=== PATIENT | female | born 1955 | race Caucasian/White ===

== ENCOUNTER → 2017-03-22 | Outpatient (CLI) | payer BC ==
[2017-03-22 11:54] LABS: Basophils # (A) 0.1 k/uL (0-0.2); Basophils % (A) 1 %; Eosinophils # (A) 0.2 k/uL (0-0.7); Eosinophils % (A) 3 %; HCT 43.6 % (34.0-46.0); HGB 14.5 gm/dL (11.4-16.0); Lymphocytes # (A) 1.4 k/uL (1.0-4.8); Lymphocytes % (A) 27 %; MCH 28.8 pg (25.0-35.0); MCHC 33.2 g/dL (31.0-37.0); MCV 86.9 fL (80.0-100.0); Mean Platelet Volume 6.6; Monocytes # (A) 0.3 k/uL (0-1.0); Monocytes % (A) 5 %; Neutrophils # (A) 3.2 k/uL (1.3-7.7); Neutrophils % (A) 61 %; Platelet Count 272 k/uL (150-450); RBC 5.02 m/uL (3.80-5.40); RDW 12.1 % (11.5-15.5); WBC 5.2 k/uL (3.8-10.6)
== END | disposition home or self-care (01) ==
LOC: LABPAT 11:04
PROVIDERS: ATTEND Obstetrics & Gynecology
DX: Z01.818 Encounter for other preprocedural examination (principal); I10 Essential (primary) hypertension; N95.0 Postmenopausal bleeding; Z01.812 Encounter for preprocedural laboratory examination
CPT/HCPCS: 36415; 85025; 93005

== ENCOUNTER → 2017-03-22 | Outpatient (CLI) | payer BC ==
[2017-03-22 12:12] LABS: ALT 40 U/L (9-52); AST 20 U/L (14-36); Albumin 3.9 g/dL (3.5-5.0); Alkaline Phosphatase 123 U/L (38-126); Anion Gap 12 mmol/L; Blood Urea Nitrogen 12 mg/dL (7-17); Calcium 9.4 mg/dL (8.4-10.2); Carbon Dioxide 25 mmol/L (22-30); Chloride 103 mmol/L (98-107); Glucose 103 mg/dL (74-99); Phosphorus 3.1 mg/dL (2.5-4.5); Potassium 4.5 mmol/L (3.5-5.1); Sodium 140 mmol/L (137-145); Total Protein 6.9 g/dL (6.3-8.2); Uric Acid 6.3 mg/dL (3.7-7.4)
[2017-03-22 15:25] LABS: Vitamin D 25 Hydroxy 9.9 ng/mL (30.0-100.0)
[2017-03-22 17:58] LABS: Parathyroid Hormone Intact 228.6 pg/mL (14.0-72.0)
== END | disposition home or self-care (01) ==
LOC: LABWHC1 11:07
PROVIDERS: ATTEND Family Medicine
DX: I12.9 Hypertensive chronic kidney disease with stage 1 through stage 4 chronic kidney disease, or unspecified chronic kidney disease (principal); N18.3 Chronic kidney disease, stage 3 (moderate)
CPT/HCPCS: 36415; 80053; 82043; 82306; 82570; 83735; 83970; 84100; 84550

== ENCOUNTER 2017-04-02 07:16 | Day surgery (SDC) | payer BC ==
[2017-03-22 15:18] VITALS: BMI 53.0
[~2017-04-02 07:16] MED LIST: DEXAMETHASONE SOD PHOSPHATE 10 MG/ML 1 ML VIAL IV ONE; LACTATED RINGERS 1,000 ML IV SCH; MIDAZOLAM 2 MG/2 ML VIAL IV PRN; MORPHINE SULFATE 4 MG/ML SYRINGE IV PRN; ONDANSETRON 4 MG/2 ML VIAL IVP ONE; Pre Op ABX Message 1 EACH MISC MISCELLANE ONE; SCOPOLAMINE 1.5MG/72HR PATCH TRANSDERM ONE
[2017-04-02 08:01] VITALS: RESP 16
[2017-04-02] MEDS ORDERED: LIDOCAINE 1% 20 ML VIAL (10MG/ML) FOR IV START INTRADERMA ONE (08:05)
[2017-04-02] MEDS ORDERED: KETOROLAC 30 MG/ML 1 ML VIAL ONE (08:54)
[2017-04-02] MEDS ORDERED: SUCCINYLCHOLINE CHLORIDE 100 MG/5 ML SYR IV ONE (08:54)
[2017-04-02] MEDS ORDERED: PROPOFOL 10 MG/ML 20 ML VIAL IV ONE (08:54)
[2017-04-02] MEDS ORDERED: fentaNYL (PF) 50 MCG/ML 2 ML AMP ONE (08:54)
[2017-04-02] MEDS ORDERED: MIDAZOLAM 2 MG/2 ML VIAL ONE (08:54)
[2017-04-02] MEDS ORDERED: LIDOCAINE 1% INJ 10MG/ML (20 ML MDV) ONE (08:54)
--- NOTE | 2017-04-02 09:28 | P.OP ---
Date of Procedure: 04/02/17 Preoperative Diagnosis: Postmenopausal bleeding, morbid obesity. Postoperative Diagnosis: Same, endometrial polyps Procedure(s) Performed: Hysteroscopy, D&C, polypectomy Anesthesia: DOMOA Surgeon: Ene Blackmon Estimated Blood Loss (ml): 10 IV fluids (ml): 600 Urine output (ml): 50 Pathology: other (Endometrial curettings and polyps) Condition: stable Disposition: PACU Description of Procedure: Patient is brought to the operating suite where a general anesthetic is administered. She's placed in the dorsal lithotomy position. The appropriate timeout was performed to assure proper patient and procedural identification. Examination under anesthesia reveals a long stenotic cervix, small anteverted uterus, adnexa difficult to assess secondary to body habitus. Bladder is drained for 10 mL of urine. Speculum was placed into the vagina and the anterior lip of the cervix is grasped with a double-tooth tenaculum. Uterus sounds to 8 cm in the anteverted position. Cervix was gently and systematically dilated using Hanks dilators. Hysteroscope was introduced and the cavity is distended with sterile saline. There is a large predominant polyp noted at the very top of the fundus. The rest of the cavity appears atrophic. Hysteroscope was removed. The uterus is now curettaged with a medium sharp curette. The large polyp is procured and sent to pathology for evaluation along with other scant endometrial tissue. Hysteroscope was once again introduced and the cavity is noted to be clear, clean and dry. All sponge needle and enhancement counts are correct. Cervix is dry upon removing the tenaculum. Patient is brought back to the recovery room in very good condition with stable vital signs including pulse 63, blood pressure 120/58. Complications: None. She will follow-up in the office with me in 2 weeks.
[2017-04-02 09:38] VITALS: TEMP 96.8
[2017-04-02] MEDS ORDERED: LACTATED RINGERS 1,000 ML IV ONE (11:10)
[2017-04-02 11:47] VITALS: BP 164/55; PULSE 6
== END 2017-04-02 12:23 | disposition home or self-care (01) ==
LOC: OR 07:16
PROVIDERS: ATTEND Obstetrics & Gynecology
DX: N84.0 Polyp of corpus uteri (principal); N87.9 Dysplasia of cervix uteri, unspecified; N95.0 Postmenopausal bleeding; I10 Essential (primary) hypertension; E78.5 Hyperlipidemia, unspecified; E03.9 Hypothyroidism, unspecified; F32.9 Major depressive disorder, single episode, unspecified; E66.01 Morbid (severe) obesity due to excess calories; Z68.43 Body mass index [BMI] 50.0-59.9, adult; Z88.2 Allergy status to sulfonamides; Z79.82 Long term (current) use of aspirin; Z79.890 Hormone replacement therapy; Z79.899 Other long term (current) drug therapy; Z98.51 Tubal ligation status
CPT/HCPCS: 58558; 88305; J2250; J1100; J2405; J2001; J3010; J1885; J0330; J2704

== ENCOUNTER → 2017-05-03 | Outpatient (CLI) | payer BC ==
--- NOTE | 2017-05-04 12:04 | MM ---
Reason for exam: screening (asymptomatic). Last mammogram was performed 3 years and 11 months ago. History: Patient is postmenopausal. Physical Findings: A clinical breast exam by your physician is recommended on an annual basis and results should be correlated with mammographic findings. MG Screening Mammo w CAD Bilateral CC and MLO view(s) were taken. Prior study comparison: May 23, 2013, bilateral digital screening mammo w/CAD. March 01, 2012, bilateral digital screening mammo w/CAD. There are scattered fibroglandular densities. No suspicious abnormality. No significant changes when compared with prior studies. ASSESSMENT: Negative, BI-RAD 1 RECOMMENDATION: Routine screening mammogram of both breasts in 1 year.
== END | disposition home or self-care (01) ==
LOC: RADMAMWWP 11:52
PROVIDERS: ATTEND Obstetrics & Gynecology
DX: Z12.31 Encounter for screening mammogram for malignant neoplasm of breast (principal)
CPT/HCPCS: 77067

== ENCOUNTER → 2017-10-15 | Outpatient (CLI) | payer BC ==
[2017-10-15 11:10] LABS: Basophils % (A) 1 %; Eosinophils # (A) 0.1 k/uL (0-0.7); Eosinophils % (A) 2 %; HCT 45.5 % (34.0-46.0); HGB 14.6 gm/dL (11.4-16.0); Lymphocytes # (A) 1.4 k/uL (1.0-4.8); Lymphocytes % (A) 24 %; MCH 27.7 pg (25.0-35.0); MCHC 32.1 g/dL (31.0-37.0); MCV 86.4 fL (80.0-100.0); Mean Platelet Volume 6.8; Monocytes # (A) 0.3 k/uL (0-1.0); Monocytes % (A) 4 %; Neutrophils % (A) 68 %; Platelet Count 229 k/uL (150-450); RBC 5.27 m/uL (3.80-5.40); WBC 5.9 k/uL (3.8-10.6)
[2017-10-15 11:58] LABS: Magnesium 2.1 mg/dL (1.6-2.3); Uric Acid 5.7 mg/dL (3.7-7.4)
[2017-10-15 12:14] LABS: T4, Free (Free Thyroxine) 1.4 ng/dL (0.78-2.19)
[2017-10-15 16:34] LABS: Vitamin D 25 Hydroxy 58.9 ng/mL (30.0-100.0)
[2017-10-15 17:00] LABS: Parathyroid Hormone Intact 133.1 pg/mL (14.0-72.0)
== END | disposition home or self-care (01) ==
LOC: LABWHC1 10:09
PROVIDERS: ATTEND Family Medicine
DX: Z01.812 Encounter for preprocedural laboratory examination (principal); E55.9 Vitamin D deficiency, unspecified; E03.9 Hypothyroidism, unspecified; N25.81 Secondary hyperparathyroidism of renal origin; E78.5 Hyperlipidemia, unspecified; N18.3 Chronic kidney disease, stage 3 (moderate)
CPT/HCPCS: 36415; 80061; 82043; 82306; 82570; 83735; 83970; 84439; 84443; 84550; 85025

== ENCOUNTER → 2017-10-15 | Outpatient (CLI) | payer BC ==
[2017-10-15 11:17] LABS: Appearance,Urine Clear (Clear); Bilirubin,Urine Negative (Negative); Blood,Urine Negative (Negative); Color,Urine Yellow; Glucose,Urine (UA) Negative (Negative); Ketones,Urine Negative (Negative); Leukocyte Esterase,Urine Small (Negative); Mucus,Urine Occasional /hpf; Nitrite,Urine Negative (Negative); PH, Urine 5.5 (5.0-8.0); Partial Thromboplastin Time 23.1 sec (22.0-30.0); Protein,Urine Trace (Negative); Prothrombin Time 10.2 sec (9.0-12.0); RBC,Urine 1 /hpf (0-5); Specific Gravity,Urine 1.021 (1.001-1.035); Squamous Epithelial Cell,Urine 3 /hpf (0-4); Urobilinogen,Urine <2.0 mg/dL (<2.0); WBC,Urine 4 /hpf (0-5)
[2017-10-15 11:28] LABS: Calcium 9.4 mg/dL (8.4-10.2); Total Protein 6.7 g/dL (6.3-8.2)
== END | disposition home or self-care (01) ==
LOC: LABPAT 10:06
PROVIDERS: ATTEND Orthopaedic Surgery
DX: Z01.812 Encounter for preprocedural laboratory examination (principal); Z51.81 Encounter for therapeutic drug level monitoring; Z79.01 Long term (current) use of anticoagulants
CPT/HCPCS: 36415; 80053; 81001; 85610; 85730; 87070

== ENCOUNTER 2017-10-30 07:30 | Inpatient (IN) | payer BC ==
[2017-10-22 12:54] VITALS: BMI 53.0
[~2017-10-30 07:30] MED LIST changes: +ACETAMINOPHEN TAB 500 MG TAB PO ONE; -LACTATED RINGERS 1,000 ML IV SCH; +LIDOCAINE 1% 20 ML VIAL (10MG/ML) FOR IV START INTRADERMA PRN; +MELOXICAM 7.5 MG TAB PO ONE; -MORPHINE SULFATE 4 MG/ML SYRINGE IV PRN; -ONDANSETRON 4 MG/2 ML VIAL IVP ONE; -Pre Op ABX Message 1 EACH MISC MISCELLANE ONE; -SCOPOLAMINE 1.5MG/72HR PATCH TRANSDERM ONE; +TRANEXAMIC ACID 1,000 MG in SODIUM CHLORIDE 0.9% 50 ML IVPB ONE; +fentaNYL (PF) 50 MCG/ML 2 ML AMP IV PRN
[2017-10-30] MEDS: ONDANSETRON 4 MG/2 ML VIAL IVP ONE ×2 (09:26→09:50)
[2017-10-30] MEDS: LACTATED RINGERS 1,000 ML IV SCH ×2 (09:50→17:09)
[2017-10-30] MEDS: ROPIVACAINE 246.25 MG, EPINEPHrine 0.5 MG, KETOROLAC 30 MG, cloNIDine HCL/PF 80 MCG, WA... MISCELLANE ONE ×15 (12:27→15:09)
[2017-10-30] MEDS ORDERED: fentaNYL (PF) 50 MCG/ML 2 ML AMP ONE (13:51)
[2017-10-30] MEDS ORDERED: SODIUM CHLORIDE 0.9% 100 ML BAG ONE (13:51)
[2017-10-30] MEDS ORDERED: PROPOFOL 10 MG/ML 20 ML VIAL IV ONE (13:51)
[2017-10-30] MEDS ORDERED: TRANEXAMIC ACID 1,000 MG/10 ML VIAL ONE (13:51)
[2017-10-30] MEDS ORDERED: MIDAZOLAM 2 MG/2 ML VIAL ONE (13:51)
--- NOTE | 2017-10-30 15:19 | P.OP ---
Date of Procedure: 10/30/17 Preoperative Diagnosis: Severe Osteoarthritis right knee Postoperative Diagnosis: Severe osteoarthritis right knee Procedure(s) Performed: Right total knee arthroplasty Implants: [employer]hew Oxinium femoral component size 5, right [employer]hew Gaviota II right nonporous tibial baseplate size 3 [employer] Nephew size 9 mm Legion XLPE dished articular insert, size 3-4 [employer] Gaviota II resurfacing patellar component, 29 mm All components were cemented using Susan bone cement.. The articulation is Oxinium on polyethylene. Anesthesia: spinal Surgeon: Samson Castellon Cylinder Valve Repairer #1: Jaycee Melton Estimated Blood Loss (ml): 50 Pathology: other (Bone and cartilage) Condition: stable Disposition: PACU Indications for Procedure: After failure of conservative treatment we discussed the surgical and nonsurgical treatment options at length. Patient wishes to proceed with a total knee arthroplasty. Complications specific to this procedure were discussed at length, including but not limited to infection, bleeding, stiffness , and nerve injury. Patient is aware of all these complications and informed consent was obtained Operative Findings: The operative findings are consistent with severe osteoarthritis of the right knee Description of Procedure: Patient was seen in the preoperative area consent was reviewed and operative site was marked with a skin marker. An adductor canal pain catheter was placed by anesthesia in the preoperative area. Patient was then brought to the operating room and given preoperative antibiotics intravenously. A spinal anesthetic was administered by the anesthesia department. A tourniquet was placed on the upper thigh and the lower extremity was prepped and draped in usual sterile fashion. A gram of transexamic acid was given. A universal timeout was then performed which confirmed the patient's name, surgical site, ALLERGIES, and consent. The lower extremity was then exsanguinated and tourniquet was inflated to 250 mmHg. A standard and anterior midline approach to the knee was performed. The skin and subcutaneous tissue was dissected down to the patellar tendon. A medial parapatellar arthrotomy was then performed. The knee was then extended, the patellar was everted, and the knee was again flexed. Anterior horns of both menisci were excised, and a release was performed to the posterior medial aspect of the knee. On gross visual inspection, there was complete loss of articular cartilage in the medial and patellofemoral joint spaces. There was also significant cartilage damage in the lateral compartment. There were multiple periarticular osteophytes which were then removed with a Ronguer. The femoral canal was then opened with the appropriate drill, and the intramedullary femoral cutting guide was then placed and set for 4 of valgus. The distal femoral cutting block was then pinned in place, and the distal femur was then cut. The cutting block was then removed and the cut was checked for flatness. Next, the sizing guide was then placed and set for 3 external rotation based off of the epicondylar axis and Whitesides line. After the femur was sized, the appropriate 4-in-1 cutting block was then pinned in place. The anterior condyles were cut without notching. The posterior and chamfer cuts were performed while protecting the collateral ligaments. The cutting block was then removed, and the femoral canal was plugged with autologous bone. Attention was then directed to the tibia. The remaining ACL was removed with a Ronguer, and the tibia was then gently subluxed forward with a large bent knee retractor. Any remaining menisci was excised. The posterior lateral corner was cauterized in order to cauterize the lateral geniculate artery. The extra medullary tibial cutting guide was then placed, set for the appropriate rotation , slope, and depth of resection. The proximal tibia cutting guide was then pinned in place. Proximal tibia was then cut and sized. Next trials were then placed with the appropriate-sized insert. The knee was able to fully extend and flex to 130 and was stable throughout all range of motion. The knee was then extended, patella everted. Patella was then measured, and then using an osteotomy guide, the patella was cut at the appropriate level. The patella was then measured and drilled and the patella trial was then placed. The knee was then taken through range of motion with the patella trial and the patella tracked normally. The knee was then extended patella trial was then removed and the patella was everted. Knee was then flexed and lug holes were drilled through the femoral trial and the femoral trial was then removed. The tibial was then exposed, and the tibial broach guide was then pinned in place after it was set for the appropriate rotation to allow for the most coverage without overhang. The tibia was then reamed and broached. The cut surfaces of bone were then irrigated with pulsatile lavage. The posterior structures were injected with the ropivacaine solution. The knee was also irrigated with Irrisept solution. The components were then opened, the cement was mixed, and the components were then cemented in place. The cement was allowed to harden with the knee in full extension. While the cement was hardening, the remaining soft tissues were then injected with a ropivacaine solution, which consisted of 246.25 mg of ropivacaine, 0.5 mg of epinephrine, 30 mg of Toradol, 80 g of clonidine, and 48.45 mL of sterile water, for a total of 100 mL of fluid injected. After the cemented hardened. The tourniquet was released, and hemostasis was obtained. A second gram of transexamic acid was given. The knee was again irrigated. The knee was again taken through range of motion and found to be stable throughout all range of motion of 0-130 , and the patella tracked normally. The fascia was then closed with #2 strata fix suture. The subcutaneous tissue was closed with 3-0 Vicryl and 3-0 strata fix. Dermabond glue was used for the skin and placed with the knee in flexion. The patient was placed in a sterile silver dressing. Patient was then transferred to recovery room in stable condition. The library assistant ZEN Orozco was required due the complexity surgery and the need for a skilled surgical nurse practitioner. She assisted in positioning, draping, retraction, and closure of the wound.
[2017-10-30] MEDS ORDERED: LACTATED RINGERS 1,000 ML IV ONE (15:23)
[2017-10-30] MEDS ORDERED: HYDROcodone/APAP 5-325MG 1 EACH TAB PO PRN (15:54)
[2017-10-30] MEDS ORDERED: BISACODYL 10 MG SUPP RECTAL PRN (15:54)
[2017-10-30] MEDS ORDERED: HYDROmorphone 1 MG/ML 1 ML SYRINGE IVP PRN ×3 (15:54)
[2017-10-30] MEDS ORDERED: NA PHOS,M-B/NA PHOS,DI-BA 133 ML ENEMA RECTAL PRN (15:54)
[2017-10-30] MEDS ORDERED: DIAZEPAM 5 MG TAB PO PRN ×2 (15:54)
[2017-10-30] MEDS ORDERED: NALOXONE 0.4 MG/ML 1 ML VIAL IV PRN (15:54)
[2017-10-30] MEDS ORDERED: MAGNESIUM HYDROXIDE 2,400 MG/10 ML CUP PO PRN (15:54)
[2017-10-30] MEDS ORDERED: ONDANSETRON 4 MG/2 ML VIAL IVP PRN (15:54)
--- NOTE | 2017-10-30 16:16 | XR ---
EXAMINATION TYPE: XR knee limited RT DATE OF EXAM: 10/30/2017 CLINICAL HISTORY: Right knee pain and arthritis status post total knee replacement. TECHNIQUE: Portable AP and crosstable lateral views of the right knee are obtained immediately posto peratively. COMPARISON: None FINDINGS: Metallic hardware from total right knee arthroplasty is seen and appears satisfactory in a lignment and position. There is evidence of recent surgery with diffuse subcutaneous gas and soft sw elling noted. IMPRESSION: METALLIC HARDWARE FROM TOTAL RIGHT KNEE ARTHROPLASTY IS SATISFACTORY IN ALIGNMENT.
[2017-10-30] MEDS: SODIUM CHLORIDE 0.9% 1,000 ML IV SCH (17:10)
[2017-10-30] MEDS: ASPIRIN 325 MG TAB PO SCH (20:42)
[2017-10-30] MEDS: SENNOSIDES-DOCUSATE SODIUM 1 EACH TAB PO SCH (20:42)
[2017-10-30] MEDS: ATORVASTATIN 40 MG TAB PO SCH (21:54)
[2017-10-30] MEDS: buPROPion SR 100 MG TABLET.ER PO SCH (21:54)
[2017-10-30] MEDS: METOPROLOL TARTRATE 25 MG TAB PO SCH (21:54)
[2017-10-30] MEDS: LOSARTAN 50 MG TAB PO SCH (21:54)
--- NOTE | 2017-10-30 23:24 | P.CONS ---
History of Present Illness - Reason for Consult Consult date: 10/30/17 Medical management Requesting physician: Samson Castellon - Chief Complaint Elective right total knee arthroplasty - History of Present Illness 62-year-old female with history of hypertension and hypothyroidism. Patient presented for elective right total knee arthroplasty due to long- standing severe advanced degenerative joint disease of the right knee failing conservative therapy. Patient reports disabling pain has been interfering with her activities of daily living to have this surgically corrected. Patient is seen today upon her primary care request for medical management of her hypertension and hypothyroidism. Patient has tolerated procedure well with no observed immediate complications. Currently she is seen postoperative day 0 she did not pass urine or bowel movement yet but she reports that her pain is well controlled and that she has already ate. She denies any chest pain or trouble breathing denies any fevers chills denies any headache changes in her vision or hearing she denies any focal neurologic deficits. She denies any history of GI bleeding Review of Systems Pertinent positives as noted in HPI. All other systems were reviewed and are negative Past Medical History Past Medical History: Hypertension, Osteoarthritis (OA), Thyroid Disorder Additional Past Medical History / Comment(s): hx rapid heart rate, heart murmur History of Any Multi-Drug Resistant Organisms: None Reported Past Surgical History: Section, Orthopedic Surgery, Tubal Ligation Additional Past Surgical History / Comment(s): carpel tunnel, arthroscopy left knee, D & C's Past Anesthesia/Blood Transfusion Reactions: No Reported Reaction Past Psychological History: Depression Smoking Status: Never smoker Past Alcohol Use History: None Reported Past Drug Use History: None Reported - Past Family History Mother Family Medical History: No Reported History Additional Family Medical History / Comment(s): Denies any history of cancer or heart disease Medications and Allergies Home Medications Medication Instructions Recorded Confirmed Type Levothyroxine Sodium [Synthroid] 50 mcg PO DAILY 02/18/16 10/30/17 History Metoprolol Tartrate [Lopressor] 25 mg PO BID 02/18/16 10/30/17 History buPROPion SR [Wellbutrin Sr] 200 mg PO BID 02/18/16 10/30/17 History Aspirin [Adult Low Dose Aspirin EC] 81 mg PO DAILY 03/22/17 10/30/17 History Atorvastatin [Lipitor] 40 mg PO HS 03/22/17 10/30/17 History Ergocalciferol (Vitamin D2) 50,000 unit PO ALLISON 10/22/17 10/30/17 History [Vitamin D2] Losartan Potassium 100 mg PO HS 10/30/17 10/30/17 History Allergies Allergy/AdvReac Type Severity Reaction Status Date / Time Sulfa (Sulfonamide Allergy Rash/Hives Verified 10/30/17 16:49 Antibiotics) Physical Exam Vitals: Vital Signs Temp Pulse Pulse Resp BP Pulse Ox 10/30/17 16:32 57 L 16 117/62 95 10/30/17 16:19 55 L 16 117/59 99 10/30/17 16:04 57 L 16 117/56 96 10/30/17 15:49 97.8 F 66 14 112/58 96 10/30/17 09:36 97.6 F 71 16 167/75 95 Intake and Output 10/30/17 10/30/17 10/30/17 06:59 14:59 22:59 Intake Total 1050 100 Output Total 50 Balance 1050 50 Intake: IV 1050 100 Output: Estimated Blood Loss 50 Other: Weight 131.542 kg Constitutional: No acute distress, conversant, pleasant Eyes: Anicteric sclerae, moist conjunctiva, no lid-lag Pupils equal round reactive to light ENMT: NC/AT Oropharynx clear, no erythema, exudates Neck: Supple, FROM, no masses, or JVD No carotid bruits No thyromegaly Lungs: Clear to auscultation Clear to percussion Normal respiratory effort, no accessory muscle use Cardiovascular: Heart regular in rate and rhythm, No murmurs, gallops, or rubs No peripheral edema Abdominal: Soft Nontender, no guarding, rebound or rigidity Abdomen moving with respiration Normoactive bowel sounds No hepatomegaly, No splenomegaly No palpable mass No abdominal wall hernia noted Skin: Normal temperature, tone, texture, turgor No induration No subcutaneous nodules No rash, lesions No ulcers Extremities: Right lower leg and with surgical dressing over the right knee looks clean dry and intact no drains. shola wrapping in place. No digital cyanosis No clubbing Pedal pulses intact and symmetrical Radial pulses intact and symmetrical No calf tenderness Psychiatric: Alert and oriented to person, place and time Appropriate affect fair judgment Neuro Muscles Strength 5/5 in all 4 extremities except for limited exam of right lower extremity due to recent surgery Sensation to light touch grossly present throughout Cranial nerves II-XII grossly intact No focal sensory deficits Lymphatics: no palpable cervical or supraclavicular , or inguinal lymph nodes Assessment and Plan Assessment: 60-year-old female with history of hypertension and hypothyroidism presented positive for elective right total knee arthroplasty due to severe advanced degenerative joint disease. Medicine was consulted for medical management, patient was seen postoperative day 0 tolerated procedure well. Plan: Severe degenerative joint disease of the right knee status post right total knee arthroplasty postoperative day 0 Pain management and DVT prophylaxis per orthopedic team Hypertension currently stable Continued home medications Losartan and metoprolol Hypothyroidism continue with levothyroxine Check morning labs CBC and BMP Thank you for allowing us to participate in the care of this patient. . Do not hesitate to contact us with questions. Someone can be reached from the [facility] hospitalist group at all hours of the day at [phone].
[2017-10-31] MEDS: HYDROcodone/APAP 5-325MG 1 EACH TAB PO PRN ×4 (00:44→20:48)
[2017-10-31] MEDS: LEVOTHYROXINE 50 MCG TAB PO SCH (05:10)
[2017-10-31 07:14] LABS: Basophils % (A) 0 %; Eosinophils % (A) 0 %; HCT 37.8 % (34.0-46.0); HGB 12.2 gm/dL (11.4-16.0); Lymphocytes # (A) 1.2 k/uL (1.0-4.8); Lymphocytes % (A) 9 %; MCH 28.3 pg (25.0-35.0); MCHC 32.3 g/dL (31.0-37.0); MCV 87.8 fL (80.0-100.0); Mean Platelet Volume 6.6; Monocytes # (A) 0.6 k/uL (0-1.0); Monocytes % (A) 5 %; Neutrophils # (A) 11.2 k/uL (1.3-7.7); Neutrophils % (A) 85 %; Platelet Count 248 k/uL (150-450); WBC 13.1 k/uL (3.8-10.6)
[2017-10-31 07:46] LABS: Calcium 8.8 mg/dL (8.4-10.2); Potassium 4.5 mmol/L (3.5-5.1)
[2017-10-31] MEDS: SODIUM CHLORIDE 0.9% 1,000 ML IV SCH ×2 (07:56→22:25)
[2017-10-31] MEDS: MELOXICAM 7.5 MG TAB PO SCH (08:05)
[2017-10-31] MEDS: ASPIRIN 325 MG TAB PO SCH ×2 (08:05→20:49)
[2017-10-31] MEDS: METOPROLOL TARTRATE 25 MG TAB PO SCH ×2 (08:06→20:48)
[2017-10-31] MEDS: buPROPion SR 100 MG TABLET.ER PO SCH ×2 (08:06→20:48)
--- NOTE | 2017-10-31 08:53 | P.PN ---
Subjective Progress Note Date: 10/31/17 This is a 62-year-old female who is status post right total knee arthroplasty. This is postoperative day #1. Patient is seen and evaluated at bedside with Dr. Samson Castellon. Patient states that her pain is well controlled and she has been up and walking with physical therapy. Patient denies any fever/chills, numbness, weakness, tingling, abdominal pain, shortness of breath or chest pain. Objective - Vital Signs Vital signs: Vital Signs Temp 97.8 F 10/31/17 07:05 Pulse 64 10/31/17 07:05 Resp 18 10/31/17 07:05 BP 138/72 10/31/17 07:05 Pulse Ox 97 10/31/17 07:05 Intake & Output 10/30/17 10/31/17 10/31/17 18:59 06:59 18:59 Intake Total 1150 1245 Output Total 50 1 Balance 1100 1244 Weight 131.542 kg Intake: IV 1150 Intake, IV Titration 845 Amount Sodium Chloride 0.9% 1, 845 000 ml @ 65 mls/hr IV . [id number] [facility] Rx#:[id number] Other 400 Output: Urine 1 Estimated Blood Loss 50 Other: # Voids 3 - Exam Vital signs are stable. Patient is in no acute distress and is alert and oriented 3. Calf is soft and nontender to palpation. Dressing is clean, dry, and intact. Patient has full foot and ankle motion without pain or difficulty. Neurovascular status and circulatory status are intact. - Labs CBC & Chem 7: 10/31/17 06:36 10/31/17 06:36 Labs: Abnormal Lab Results - Last 24 Hours (Table) 10/31/17 10/31/17 Range/Units 06:36 06:36 WBC 13.1 H (3.8-10.6) k/uL Neutrophils # 11.2 H (1.3-7.7) k/uL Creatinine 1.22 H (0.52-1.04) mg/dL Glucose 100 H (74-99) mg/dL Assessment and Plan (1) Primary osteoarthritis of right knee Current Visit: Yes Status: Acute Code(s): M17.11 - UNILATERAL PRIMARY OSTEOARTHRITIS, RIGHT KNEE SNOMED Code(s): 336843396391401 (2) Status post total right knee replacement Current Visit: Yes Status: Acute Code(s): Z96.651 - PRESENCE OF RIGHT ARTIFICIAL KNEE JOINT SNOMED Code(s): 9432148082838 Plan: #1 Continue with routine postoperative care, leave dressing in place for 10 days. #2 Anticoagulation with aspirin. #3 Physical therapy and CPM today. #4 Appreciate input from medicine. #5 Anticipate discharge home with home care likely tomorrow or to rehab Sunday.
[2017-10-31] MEDS: LACTATED RINGERS 1,000 ML IV SCH (09:07)
--- NOTE | 2017-10-31 13:43 | P.PN ---
Subjective Progress Note Date: 10/31/17 Principal diagnosis: Knee pain Patient doing well, no significant pain. No nausea or vomiting. No chest pain or shortness of breath. Objective - Vital Signs Vital signs: Vital Signs Temp 97.8 F 10/31/17 07:05 Pulse 64 10/31/17 07:05 Resp 18 10/31/17 07:05 BP 138/72 10/31/17 07:05 Pulse Ox 97 10/31/17 07:05 Intake & Output 10/30/17 10/31/17 10/31/17 18:59 06:59 18:59 Intake Total 1150 1245 Output Total 50 1 Balance 1100 1244 Weight 131.542 kg Intake: IV 1150 Intake, IV Titration 845 Amount Sodium Chloride 0.9% 1, 845 000 ml @ 65 mls/hr IV . [id number] [facility] Rx#:[id number] Other 400 Output: Urine 1 Estimated Blood Loss 50 Other: # Voids 3 - Exam Constitutional: No acute distress, conversant, pleasant Eyes:Anicteric sclerae, moist conjunctiva, no lid-lag, PERRLA, ENMT: Oropharynx clear, no erythema, exudates Neck: Supple, FROM, no masses, or JVD, No carotid bruits, No thyromegaly Lungs: Clear to auscultation, Clear to percussion, Normal respiratory effort, no accessory muscle use Cardiovascular: Heart regular in rate and rhythm, No murmurs, gallops, or rubs, No peripheral edema Abdominal: Soft, Nontender, no guarding, rebound or rigidity, Normoactive bowel sounds, No hepatomegaly, No splenomegaly, No palpable mass Skin: Normal temperature, tone, texture, turgor, no induration, No subcutaneous nodules, No rash, lesions, No ulcers Extremities: Right knee surgical dressings applied No digital cyanosis, No clubbing, Pedal pulses intact and symmetrical, Radial pulses intact and symmetrical, No calf tenderness Psychiatric: Alert and oriented to person, place and time, appropriate affect, intact judgement Neuro: Muscles Strength 5/5 in all 4 extremities, Sensation to light touch grossly present throughout, Cranial nerves II-XII grossly intact, no focal sensory deficits - Labs CBC & Chem 7: 10/31/17 06:36 10/31/17 06:36 Labs: Abnormal Lab Results - Last 24 Hours (Table) 10/31/17 10/31/17 Range/Units 06:36 06:36 WBC 13.1 H (3.8-10.6) k/uL Neutrophils # 11.2 H (1.3-7.7) k/uL Creatinine 1.22 H (0.52-1.04) mg/dL Glucose 100 H (74-99) mg/dL Assessment and Plan Plan: -Severe degenerative joint disease of the right knee status post right total knee arthroplasty postoperative day 1 Pain management and DVT prophylaxis per orthopedic team -Hypertension currently stable Continued home medications Losartan and metoprolol -Hypothyroidism Continue with levothyroxine
[2017-10-31] MEDS ORDERED: HYDROmorphone 2 MG TAB PO PRN ×2 (15:35→15:36)
[2017-10-31] MEDS ORDERED: HYDROmorphone 4 MG TABLET PO PRN (15:36)
[2017-10-31] MEDS: SENNOSIDES-DOCUSATE SODIUM 1 EACH TAB PO SCH (20:48)
[2017-10-31] MEDS: hydrOXYzine PAMOATE 25 MG CAP PO PRN (20:49)
[2017-10-31] MEDS: ATORVASTATIN 40 MG TAB PO SCH (20:49)
[2017-10-31] MEDS: LOSARTAN 50 MG TAB PO SCH (20:49)
[2017-11-01] MEDS: HYDROcodone/APAP 5-325MG 1 EACH TAB PO PRN ×2 (01:59→07:58)
[2017-11-01] MEDS: hydrOXYzine PAMOATE 25 MG CAP PO PRN ×3 (02:00→21:31)
[2017-11-01] MEDS: LEVOTHYROXINE 50 MCG TAB PO SCH (05:23)
[2017-11-01] MEDS: ASPIRIN 325 MG TAB PO SCH ×2 (07:57→21:27)
[2017-11-01] MEDS: MELOXICAM 7.5 MG TAB PO SCH (07:57)
[2017-11-01] MEDS: METOPROLOL TARTRATE 25 MG TAB PO SCH ×2 (07:59→21:27)
[2017-11-01] MEDS ORDERED: HYDROcodone/APAP 7.5-325MG 1 EACH TAB PO PRN (08:46)
--- NOTE | 2017-11-01 08:46 | P.PN ---
Subjective Progress Note Date: 11/01/17 This is a 62-year-old female who is status post right total knee arthroplasty. This is postoperative day #2. Patient is seen and evaluated at bedside. Patient states she has been up and walking with physical therapy, but she did have more pain last night. Patient denies any fever/chills, numbness, weakness, tingling, abdominal pain, shortness of breath or chest pain. Objective - Vital Signs Vital signs: Vital Signs Temp 98.4 F 11/01/17 07:36 Pulse 64 11/01/17 07:36 Resp 18 11/01/17 07:36 BP 131/66 11/01/17 07:36 Pulse Ox 98 11/01/17 07:36 Intake & Output 10/31/17 11/01/17 11/01/17 18:59 06:59 18:59 Intake Total 540 1140 Balance 540 1140 Intake: Oral 540 540 Other 600 Other: # Voids 2 4 - Exam Vital signs are stable. Patient is in no acute distress and is alert and oriented 3. Calf is soft and nontender to palpation. Dressing is clean, dry, and intact. Patient has full foot and ankle motion without pain or difficulty. Neurovascular status and circulatory status are intact. - Labs CBC & Chem 7: 10/31/17 06:36 10/31/17 06:36 Assessment and Plan (1) Primary osteoarthritis of right knee Current Visit: Yes Status: Acute Code(s): M17.11 - UNILATERAL PRIMARY OSTEOARTHRITIS, RIGHT KNEE SNOMED Code(s): 434275403193228 (2) Status post total right knee replacement Current Visit: Yes Status: Acute Code(s): Z96.651 - PRESENCE OF RIGHT ARTIFICIAL KNEE JOINT SNOMED Code(s): 0529070042593 Plan: #1 Continue with routine postoperative care, leave dressing in place for 10 days. #2 Anticoagulation with aspirin. #3 Physical therapy and CPM today. #4 Appreciate input from medicine. #5 Anticipate discharge to rehab tomorrow.
[2017-11-01] MEDS: buPROPion SR 100 MG TABLET.ER PO SCH ×2 (10:14→21:27)
--- NOTE | 2017-11-01 12:43 | P.PN ---
Subjective Progress Note Date: 11/01/17 Principal diagnosis: Knee pain Patient stated she had a rough night last night. Otherwise been doing well. Objective - Vital Signs Vital signs: Vital Signs Temp 98.4 F 11/01/17 07:36 Pulse 64 11/01/17 07:36 Resp 18 11/01/17 07:36 BP 131/66 11/01/17 07:36 Pulse Ox 98 11/01/17 07:36 Intake & Output 10/31/17 11/01/17 11/01/17 18:59 06:59 18:59 Intake Total 540 1140 Balance 540 1140 Intake: Oral 540 540 Other 600 Other: # Voids 2 4 - Exam Constitutional: No acute distress, conversant, pleasant Eyes:Anicteric sclerae, moist conjunctiva, no lid-lag, PERRLA, ENMT: Oropharynx clear, no erythema, exudates Neck: Supple, FROM, no masses, or JVD, No carotid bruits, No thyromegaly Lungs: Clear to auscultation, Clear to percussion, Normal respiratory effort, no accessory muscle use Cardiovascular: Heart regular in rate and rhythm, No murmurs, gallops, or rubs, No peripheral edema Abdominal: Soft, Nontender, no guarding, rebound or rigidity, Normoactive bowel sounds, No hepatomegaly, No splenomegaly, No palpable mass Skin: Normal temperature, tone, texture, turgor, no induration, No subcutaneous nodules, No rash, lesions, No ulcers Extremities: Right knee surgical dressings applied No digital cyanosis, No clubbing, Pedal pulses intact and symmetrical, Radial pulses intact and symmetrical, No calf tenderness Psychiatric: Alert and oriented to person, place and time, appropriate affect, intact judgement Neuro: Muscles Strength 5/5 in all 4 extremities, Sensation to light touch grossly present throughout, Cranial nerves II-XII grossly intact, no focal sensory deficits - Labs CBC & Chem 7: 10/31/17 06:36 10/31/17 06:36 Assessment and Plan Plan: -Severe degenerative joint disease of the right knee status post right total knee arthroplasty postoperative day 1 Pain management and DVT prophylaxis per orthopedic team -Hypertension currently stable Continued home medications Losartan and metoprolol -Hypothyroidism Continue with levothyroxine
[2017-11-01] MEDS: HYDROcodone/APAP 7.5-325MG 1 EACH TAB PO PRN ×2 (14:03→21:32)
[2017-11-01] MEDS: SODIUM CHLORIDE 0.9% 1,000 ML IV SCH (17:03)
[2017-11-01] MEDS: LACTATED RINGERS 1,000 ML IV SCH (17:03)
[2017-11-01] MEDS: LOSARTAN 50 MG TAB PO SCH (21:27)
[2017-11-01] MEDS: ATORVASTATIN 40 MG TAB PO SCH (21:27)
[2017-11-01] MEDS: SENNOSIDES-DOCUSATE SODIUM 1 EACH TAB PO SCH (21:27)
[2017-11-02] MEDS: LEVOTHYROXINE 50 MCG TAB PO SCH (05:30)
[2017-11-02] MEDS: SODIUM CHLORIDE 0.9% 1,000 ML IV SCH ×2 (05:46→20:10)
[2017-11-02 07:58] LABS: Basophils % (A) 1 %; Eosinophils # (A) 0.1 k/uL (0-0.7); Eosinophils % (A) 2 %; HCT 38.1 % (34.0-46.0); HGB 11.7 gm/dL (11.4-16.0); Lymphocytes # (A) 1.8 k/uL (1.0-4.8); Lymphocytes % (A) 27 %; MCH 27.7 pg (25.0-35.0); MCHC 30.7 g/dL (31.0-37.0); MCV 90.2 fL (80.0-100.0); Mean Platelet Volume 6.5; Monocytes # (A) 0.4 k/uL (0-1.0); Monocytes % (A) 6 %; Neutrophils # (A) 4.4 k/uL (1.3-7.7); Neutrophils % (A) 63 %; Platelet Count 208 k/uL (150-450); RBC 4.22 m/uL (3.80-5.40); RDW 13.1 % (11.5-15.5); WBC 6.9 k/uL (3.8-10.6)
--- NOTE | 2017-11-02 08:37 | P.DS ---
Providers Date of admission: 10/30/17 09:20 Expected date of discharge: 11/02/17 Attending physician: Samson Castellon Consults: 10/30/17 15:54 Consult Physician Routine Consulting Provider: Jodi Amor Consult Reason/Comments: medical management Do you want consulting provider notified?: Yes Primary care physician: Viviana Weber MD - Discharge Diagnosis(es) (1) Primary osteoarthritis of right knee Current Visit: Yes Status: Acute (2) Status post total right knee replacement Current Visit: Yes Status: Acute Hospital Course: This is a 62-year-old female with known history of degenerative arthritis of the right knee. The patient presents for evaluation. After discussion and consideration patient elects to proceed with total knee arthroplasty. The patient is seen preoperatively by Dr. Castellon and medically cleared for surgery by their primary care physician. Patient is admitted to [facility] on 10/30/2017 for total knee arthroplasty. The procedures performed without complication or sequelae. The patient is doing well postoperatively. Labs and vital signs are stable on day of discharge. On day of discharge patient's knee incision is healing well. There is minimal erythema. There is no drainage noted at this time. There is minimal soft tissue swelling to the knee. Patient has full foot and ankle motion without difficulty or pain. Neurovascular status to the right lower extremity is intact. Patient is discharged to rehab in good condition. Please see med rec for accurate list of home medications. Plan - Discharge Summary Discharge Rx Participant: Yes New Discharge Prescriptions: New Aspirin 325 mg PO BID #60 tab HYDROcodone/APAP 7.5-325MG [[place] 7.5-325] 1 - 2 tab PO Q4-6H PRN #84 tab PRN Reason: Pain Sennosides [Senokot] 1 tab PO BID #60 tablet No Action buPROPion SR [Wellbutrin Sr] 200 mg PO BID Metoprolol Tartrate [Lopressor] 25 mg PO BID Levothyroxine Sodium [Synthroid] 50 mcg PO DAILY Atorvastatin [Lipitor] 40 mg PO HS Aspirin [Adult Low Dose Aspirin EC] 81 mg PO DAILY Ergocalciferol (Vitamin D2) [Vitamin D2] 50,000 unit PO ALLISON Losartan Potassium 100 mg PO HS Discharge Medication List Levothyroxine Sodium [Synthroid] 50 mcg PO DAILY 02/18/16 [History] Metoprolol Tartrate [Lopressor] 25 mg PO BID 02/18/16 [History] buPROPion SR [Wellbutrin Sr] 200 mg PO BID 02/18/16 [History] Aspirin [Adult Low Dose Aspirin EC] 81 mg PO DAILY 03/22/17 [History] Atorvastatin [Lipitor] 40 mg PO HS 03/22/17 [History] Ergocalciferol (Vitamin D2) [Vitamin D2] 50,000 unit PO ALLISON 10/22/17 [History] Losartan Potassium 100 mg PO HS 10/30/17 [History] Aspirin 325 mg PO BID #60 tab 11/02/17 [Rx] HYDROcodone/APAP 7.5-325MG [[place] 7.5-325] 1 - 2 tab PO Q4-6H PRN #84 tab [Rx] Sennosides [Senokot] 1 tab PO BID #60 tablet 11/02/17 [Rx] Follow up Appointment(s)/Referral(s): Viviana Weber MD [Primary Care Provider] - 1 Week Samson Castellon DO [Doctor of Osteopathic Medicine] - 11/16/17 1:25 pm Ambulatory/Diagnostic Orders: Continuous Passive Motion (CPM) Machine [DME.AMB1] Time Frame: 3 Weeks, Location : None Selected Activity/Diet/Wound Care/Special Instructions: Weightbearing as tolerated with a walker CPM 5-6h daily Leave dressing intact. May be removed by home care nurse in 10 days. May shower with dressing on. Please call [facility] with any questions or concerns, Discharge Disposition: HOME WITH HOME HEALTH SERVICES
[2017-11-02] MEDS: buPROPion SR 100 MG TABLET.ER PO SCH ×2 (08:57→20:07)
[2017-11-02] MEDS: ASPIRIN 325 MG TAB PO SCH ×2 (08:57→20:08)
[2017-11-02] MEDS: MELOXICAM 7.5 MG TAB PO SCH (08:58)
[2017-11-02] MEDS: METOPROLOL TARTRATE 25 MG TAB PO SCH ×2 (08:59→20:08)
[2017-11-02] MEDS: hydrOXYzine PAMOATE 25 MG CAP PO PRN (11:35)
[2017-11-02] MEDS: HYDROcodone/APAP 7.5-325MG 1 EACH TAB PO PRN (11:36)
[2017-11-02] MEDS: LACTATED RINGERS 1,000 ML IV SCH (12:28)
[2017-11-02] MEDS: SENNOSIDES-DOCUSATE SODIUM 1 EACH TAB PO SCH (20:08)
[2017-11-02] MEDS: LOSARTAN 50 MG TAB PO SCH (20:08)
[2017-11-02] MEDS: ATORVASTATIN 40 MG TAB PO SCH (20:08)
[2017-11-03] MEDS: hydrOXYzine PAMOATE 25 MG CAP PO PRN ×3 (00:11→20:41)
[2017-11-03] MEDS: LEVOTHYROXINE 50 MCG TAB PO SCH (05:18)
[2017-11-03] MEDS: HYDROcodone/APAP 7.5-325MG 1 EACH TAB PO PRN ×2 (05:18→20:38)
[2017-11-03] MEDS: buPROPion SR 100 MG TABLET.ER PO SCH ×2 (08:16→20:37)
[2017-11-03] MEDS: METOPROLOL TARTRATE 25 MG TAB PO SCH ×2 (08:16→20:38)
[2017-11-03] MEDS: MELOXICAM 7.5 MG TAB PO SCH (08:17)
[2017-11-03] MEDS: ASPIRIN 325 MG TAB PO SCH ×2 (08:17→20:38)
--- NOTE | 2017-11-03 10:34 | P.PN ---
Progress Note - Text Progress Note Date: 11/03/17 Patient is a very pleasant 62-year-old female who is seen and examined at the bedside for follow-up evaluation after undergoing a right total knee arthroplasty performed by Dr. Samson Castellon on 10/30/2017. Patient has been improving significantly well postoperatively. She is planning for discharge to [facility]. She was scheduled to be discharged yesterday but has not received approval from her insurance for discharge to rehab. She has no complaints regards to her right knee. She has some right knee pain that has been adequately controlled. She's been able to ambulate with assistance a walker and with therapy without significant difficulty. She is eating and voiding without difficulty. Physical Exam Total Knee Arthroplasty: Status post surgical day number Patient is awake, alert, and oriented 3 Vital signs stable Good chest excursion with deep inspiration and expiration Abdomen soft nontender No signs or symptoms of DVT; no calf pain Dressing is clean, dry, and intact; no erythema, purulence, or signs of infection Patient has full foot and ankle motion without difficulty bilateral lower extremities Dorsiflexion, plantar flexion, and extensor hallucis longus positive sustained bilaterally Neurovascular status left lower extremity intact Capillary refill lower extremity is bilaterally less than 2 seconds Assessment: Status post right total knee arthroplasty Right knee pain Osteoarthritis right knee Plan: 1. Patient to remain weight-bear as tolerated on the right lower extremity; patient may work with physical therapy to increase mobility and ambulation; may continue to use a walker to aid in ambulation as needed 2. Leave dressing intact over the right knee; Dressing may be removed by the home care nurse in 10 days; patient may shower with dressing intact 2. Continue pain control with [place] 7.5 mg/325 mg as prescribed 3. Medicine to continue following the patient for his other medical issues 4. Patient to continue with anticoagulation therapy with aspirin 325 mg as prescribed 5. We'll continue to follow the patient 6. Patient will more than likely remain in the hospital over the weekend as she is waiting for approval by her insurance with plans to be discharged to [facility] this coming 11/05/2017 7. Patient to follow-up with Dr. Samson Castellon as scheduled on 11/16/2017 at [facility]
[2017-11-03] MEDS: LACTATED RINGERS 1,000 ML IV SCH (16:32)
[2017-11-03] MEDS: SODIUM CHLORIDE 0.9% 1,000 ML IV SCH (16:32)
[2017-11-03] MEDS: SENNOSIDES-DOCUSATE SODIUM 1 EACH TAB PO SCH (20:38)
[2017-11-03] MEDS: ATORVASTATIN 40 MG TAB PO SCH (20:38)
[2017-11-03] MEDS: LOSARTAN 50 MG TAB PO SCH (20:38)
[2017-11-04] MEDS: SODIUM CHLORIDE 0.9% 1,000 ML IV SCH ×2 (04:29→20:19)
[2017-11-04] MEDS: hydrOXYzine PAMOATE 25 MG CAP PO PRN ×3 (05:00→22:29)
[2017-11-04] MEDS: LEVOTHYROXINE 50 MCG TAB PO SCH (05:00)
[2017-11-04] MEDS: HYDROcodone/APAP 7.5-325MG 1 EACH TAB PO PRN ×3 (05:00→22:30)
[2017-11-04] MEDS ORDERED: ERGOCALCIFEROL 50,000 UNIT CAP PO SCH (09:00)
[2017-11-04] MEDS: ASPIRIN 325 MG TAB PO SCH ×2 (09:43→20:25)
[2017-11-04] MEDS: MELOXICAM 7.5 MG TAB PO SCH (09:43)
[2017-11-04] MEDS: METOPROLOL TARTRATE 25 MG TAB PO SCH ×2 (09:43→20:26)
--- NOTE | 2017-11-04 12:52 | P.PN ---
Progress Note - Text Progress Note Date: 11/04/17 Patient is a very pleasant 62-year-old female who is seen and examined at the bedside for follow-up evaluation after undergoing a right total knee arthroplasty performed by Dr. Samson Castellon on 10/30/2017. Patient has into new to improve significantly well postoperatively. She has had some increased soreness of the right knee after increase ambulation yesterday without significant pain. Her pain is adequately controlled. She is planning for discharge to [facility]. She was scheduled to be discharged Sunday but has not received approval from her insurance for discharge to rehab. She's been able to ambulate with assistance a walker and with therapy without significant difficulty. She is eating and voiding without difficulty. At this time she wonders if she is ready for discharge home Sunday versus rehabilitation. Physical Exam Total Knee Arthroplasty: Status post surgical day number 5 Patient is awake, alert, and oriented 3 Vital signs stable Good chest excursion with deep inspiration and expiration Abdomen soft nontender No signs or symptoms of DVT; no calf pain Dressing over the right knee is clean, dry, and intact; no erythema, purulence, or signs of infection Mild bruising and some generalized swelling around the surgical site Patient has full foot and ankle motion without difficulty bilateral lower extremities Dorsiflexion, plantar flexion, and extensor hallucis longus positive sustained bilaterally Neurovascular status left lower extremity intact Capillary refill lower extremity is bilaterally less than 2 seconds Assessment: Status post right total knee arthroplasty Right knee pain Osteoarthritis right knee Plan: 1. Patient to remain weight-bear as tolerated on the right lower extremity; patient may work with physical therapy to increase mobility and ambulation; may continue to use a walker to aid in ambulation as needed 2. Leave dressing intact over the right knee; Dressing may be removed by the home care nurse in 10 days; patient may shower with dressing intact 2. Continue pain control with [place] 7.5 mg/325 mg as prescribed 3. Medicine to continue following the patient for his other medical issues 4. Patient to continue with anticoagulation therapy with aspirin 325 mg as prescribed 5. We'll continue to follow the patient 6. Patient will more than likely remain in the hospital over the weekend as she is waiting for approval by her insurance with plans to be discharged to [facility] this coming 11/05/2017, or possibly discharge home 7. Patient to follow-up with Dr. Samson Castellon as scheduled on 11/16/2017 at [facility]
[2017-11-04] MEDS: buPROPion SR 100 MG TABLET.ER PO SCH ×2 (12:54→22:29)
--- NOTE | 2017-11-04 17:43 | US ---
EXAMINATION TYPE: US venous doppler duplex LE RT DATE OF EXAM: 11/04/2017 4:39 PM COMPARISON: NONE CLINICAL HISTORY: BRUISING. Right leg bruising s/p right total knee SIDE PERFORMED: Right TECHNIQUE: The lower extremity deep venous system is examined utilizing real time linear array sonog ovi with graded compression, doppler sonography and color-flow sonography. VESSELS IMAGED: External Iliac Vein (EIV) Common Femoral Vein Deep Femoral Vein Greater Saphenous Vein * Femoral Vein Popliteal Vein Small Saphenous Vein * Proximal Calf Veins (* superficial vessels) IMPRESSION: Limited exam secondary to patient body habitus. No right-sided deep vein thrombosis as visualized.
--- NOTE | 2017-11-04 17:43 | P.PN ---
Subjective Progress Note Date: 11/04/17 Principal diagnosis: Knee pain Patient has a rough night last night because of knee pain. Currently feeling comfortable, just had shower. Objective - Vital Signs Vital signs: Vital Signs Temp 98.4 F 11/04/17 15:12 Pulse 69 11/04/17 15:12 Resp 16 11/04/17 15:12 BP 108/67 11/04/17 15:12 Pulse Ox 100 11/04/17 15:12 Intake & Output 11/03/17 11/04/17 11/04/17 18:59 06:59 18:59 Intake Total 1080 Balance 1080 Intake: Oral 1080 Other: Voiding Method Toilet # Voids 3 2 - Exam Constitutional: No acute distress, conversant, pleasant Eyes:Anicteric sclerae, moist conjunctiva, no lid-lag, PERRLA, ENMT: Oropharynx clear, no erythema, exudates Neck: Supple, FROM, no masses, or JVD, No carotid bruits, No thyromegaly Lungs: Clear to auscultation, Clear to percussion, Normal respiratory effort, no accessory muscle use Cardiovascular: Heart regular in rate and rhythm, No murmurs, gallops, or rubs, No peripheral edema Abdominal: Soft, Nontender, no guarding, rebound or rigidity, Normoactive bowel sounds, No hepatomegaly, No splenomegaly, No palpable mass Skin: Normal temperature, tone, texture, turgor, no induration, No subcutaneous nodules, No rash, lesions, No ulcers Extremities: Right knee surgical dressings applied No digital cyanosis, No clubbing, Pedal pulses intact and symmetrical, Radial pulses intact and symmetrical, No calf tenderness Psychiatric: Alert and oriented to person, place and time, appropriate affect, intact judgement Neuro: Muscles Strength 5/5 in all 4 extremities, Sensation to light touch grossly present throughout, Cranial nerves II-XII grossly intact, no focal sensory deficits - Labs CBC & Chem 7: 11/02/17 07:08 10/31/17 06:36 Assessment and Plan Plan: -Severe degenerative joint disease of the right knee status post right total knee arthroplasty postoperative day 1 Pain management and DVT prophylaxis per orthopedic team -Hypertension currently stable Continued home medications Losartan and metoprolol -Hypothyroidism Continue with levothyroxine -Disposition Awaiting insurance authorization to discharge to [facility] for rehab
[2017-11-04] MEDS: LACTATED RINGERS 1,000 ML IV SCH (18:20)
[2017-11-04] MEDS: ATORVASTATIN 40 MG TAB PO SCH (20:26)
[2017-11-04] MEDS: LOSARTAN 50 MG TAB PO SCH (20:26)
[2017-11-04] MEDS: SENNOSIDES-DOCUSATE SODIUM 1 EACH TAB PO SCH (20:26)
[2017-11-05] MEDS: ASPIRIN 325 MG TAB PO SCH ×2 (07:58→22:23)
[2017-11-05] MEDS: HYDROcodone/APAP 7.5-325MG 1 EACH TAB PO PRN ×3 (07:58→22:24)
[2017-11-05] MEDS: LEVOTHYROXINE 50 MCG TAB PO SCH (07:58)
[2017-11-05] MEDS: METOPROLOL TARTRATE 25 MG TAB PO SCH ×2 (07:58→22:25)
[2017-11-05] MEDS: buPROPion SR 100 MG TABLET.ER PO SCH ×2 (07:59→22:23)
[2017-11-05] MEDS: MELOXICAM 7.5 MG TAB PO SCH (07:59)
--- NOTE | 2017-11-05 08:58 | P.DS ---
Providers Date of admission: 10/30/17 09:20 Expected date of discharge: 11/05/17 Attending physician: Samson Castellon Consults: 10/30/17 15:54 Consult Physician Routine Consulting Provider: Jodi Amor Consult Reason/Comments: medical management Do you want consulting provider notified?: Yes Primary care physician: Viviana Weber MD - Discharge Diagnosis(es) (1) Primary osteoarthritis of right knee Current Visit: Yes Status: Acute (2) Status post total right knee replacement Current Visit: Yes Status: Acute Hospital Course: This is a 62-year-old female with known history of degenerative arthritis of the right knee. The patient presents for evaluation. After discussion and consideration patient elects to proceed with total knee arthroplasty. The patient is seen preoperatively by Dr. Castellon and medically cleared for surgery by their primary care physician. Patient is admitted to [facility] on 10/30/2017 for total knee arthroplasty. The procedures performed without complication or sequelae. The patient is doing well postoperatively. Labs and vital signs are stable on day of discharge. Patient had a doppler ultrasound of the right lower extremity and this was negative for DVT. On day of discharge patient's knee incision is healing well. There is minimal erythema. There is no drainage noted at this time. There is minimal soft tissue swelling to the knee. There is ecchymosis over the right lower extremity. Compartments are soft. Patient has full foot and ankle motion without difficulty or pain. Neurovascular status to the right lower extremity is intact. Patient is discharged home in good condition. Please see med rec for accurate list of home medications. Plan - Discharge Summary Discharge Rx Participant: Yes New Discharge Prescriptions: New Aspirin 325 mg PO BID #60 tab HYDROcodone/APAP 7.5-325MG [[place] 7.5-325] 1 - 2 tab PO Q4-6H PRN #84 tab PRN Reason: Pain Sennosides [Senokot] 1 tab PO BID #60 tablet No Action buPROPion SR [Wellbutrin Sr] 200 mg PO BID Metoprolol Tartrate [Lopressor] 25 mg PO BID Levothyroxine Sodium [Synthroid] 50 mcg PO DAILY Atorvastatin [Lipitor] 40 mg PO HS Aspirin [Adult Low Dose Aspirin EC] 81 mg PO DAILY Ergocalciferol (Vitamin D2) [Vitamin D2] 50,000 unit PO ALLISON Losartan Potassium 100 mg PO HS Discharge Medication List Levothyroxine Sodium [Synthroid] 50 mcg PO DAILY 02/18/16 [History] Metoprolol Tartrate [Lopressor] 25 mg PO BID 02/18/16 [History] buPROPion SR [Wellbutrin Sr] 200 mg PO BID 02/18/16 [History] Aspirin [Adult Low Dose Aspirin EC] 81 mg PO DAILY 03/22/17 [History] Atorvastatin [Lipitor] 40 mg PO HS 03/22/17 [History] Ergocalciferol (Vitamin D2) [Vitamin D2] 50,000 unit PO ALLISON 10/22/17 [History] Losartan Potassium 100 mg PO HS 10/30/17 [History] Aspirin 325 mg PO BID #60 tab 11/02/17 [Rx] HYDROcodone/APAP 7.5-325MG [[place] 7.5-325] 1 - 2 tab PO Q4-6H PRN #84 tab [Rx] Sennosides [Senokot] 1 tab PO BID #60 tablet 11/02/17 [Rx] Follow up Appointment(s)/Referral(s): Viviana Weber MD [Primary Care Provider] - 1 Week (office closed please call to make appointment on Sunday) Samson Castellon DO [Doctor of Osteopathic Medicine] - 11/16/17 1:25 pm Ambulatory/Diagnostic Orders: Continuous Passive Motion (CPM) Machine [DME.AMB1] Time Frame: 3 Weeks, Location : None Selected Activity/Diet/Wound Care/Special Instructions: Weightbearing as tolerated with a walker CPM 5-6h daily Leave dressing intact. May be removed by home care nurse in 10 days. May shower with dressing on. Please call [facility] with any questions or concerns, Discharge Disposition: HOME WITH HOME HEALTH SERVICES
[2017-11-05] MEDS: SODIUM CHLORIDE 0.9% 1,000 ML IV SCH (10:11)
[2017-11-05] MEDS: LACTATED RINGERS 1,000 ML IV SCH (10:11)
[2017-11-05] MEDS: SENNOSIDES-DOCUSATE SODIUM 1 EACH TAB PO SCH (22:24)
[2017-11-05] MEDS: LOSARTAN 50 MG TAB PO SCH (22:24)
[2017-11-05] MEDS: hydrOXYzine PAMOATE 25 MG CAP PO PRN (22:25)
[2017-11-05] MEDS: ATORVASTATIN 40 MG TAB PO SCH (22:25)
[2017-11-06] MEDS: SODIUM CHLORIDE 0.9% 1,000 ML IV SCH ×2 (03:36→08:38)
[2017-11-06] MEDS: HYDROcodone/APAP 7.5-325MG 1 EACH TAB PO PRN ×2 (05:43→15:49)
[2017-11-06] MEDS: LEVOTHYROXINE 50 MCG TAB PO SCH (05:44)
[2017-11-06] MEDS: buPROPion SR 100 MG TABLET.ER PO SCH (08:37)
[2017-11-06] MEDS: LACTATED RINGERS 1,000 ML IV SCH (08:37)
[2017-11-06] MEDS: ASPIRIN 325 MG TAB PO SCH (08:37)
[2017-11-06] MEDS: MELOXICAM 7.5 MG TAB PO SCH (08:37)
[2017-11-06] MEDS: METOPROLOL TARTRATE 25 MG TAB PO SCH (08:37)
[2017-11-06 14:46] VITALS: BP 135/72; PULSE 72; RESP 12; TEMP 98.8
== END 2017-11-06 17:04 | disposition home health service (06) | DRG 470 ==
LOC: 2ORMAIN 09:20 → 3SUR 15:40
PROVIDERS: ADMIT Orthopaedic Surgery; ATTEND Orthopaedic Surgery
PROC: 0SRC069 Replacement of Right Knee Joint with Oxidized Zirconium on Polyethylene Synthetic Substitute, Cemented, Open Approach (ICD-10-PCS; principal; 2017-10-30 11:00)
DX: M17.0 Bilateral primary osteoarthritis of knee (principal); Z68.43 Body mass index [BMI] 50.0-59.9, adult; E03.9 Hypothyroidism, unspecified; F32.9 Major depressive disorder, single episode, unspecified; R01.1 Cardiac murmur, unspecified; K76.0 Fatty (change of) liver, not elsewhere classified; E78.5 Hyperlipidemia, unspecified; R26.81 Unsteadiness on feet; E21.3 Hyperparathyroidism, unspecified; E55.9 Vitamin D deficiency, unspecified; H35.3 Degeneration of macula and posterior pole; I12.9 Hypertensive chronic kidney disease with stage 1 through stage 4 chronic kidney disease, or unspecified chronic kidney disease; N18.3 Chronic kidney disease, stage 3 (moderate); E66.01 Morbid (severe) obesity due to excess calories; Z98.51 Tubal ligation status; Z79.82 Long term (current) use of aspirin; Z79.890 Hormone replacement therapy; Z79.899 Other long term (current) drug therapy; Z88.2 Allergy status to sulfonamides; Z88.8 Allergy status to other drugs, medicaments and biological substances; Z80.3 Family history of malignant neoplasm of breast; Z80.0 Family history of malignant neoplasm of digestive organs; Z83.518 Family history of other specified eye disorder; Z82.49 Family history of ischemic heart disease and other diseases of the circulatory system
CPT/HCPCS: 80048; 85025; 88300

== ENCOUNTER → 2018-02-12 | Outpatient (CLI) | payer BC ==
[2018-02-12 19:00] LABS: Anion Gap 7.7 mmol/L (4.00-12.00); Calcium 9.1 mg/dL (8.7-10.3); Carbon Dioxide 25.3 mmol/L (21.6-31.8); Magnesium 1.9 mg/dL (1.5-2.4); Phosphorus 3.7 mg/dL (2.4-5.1); Potassium 4.4 mmol/L (3.5-5.5)
== END ==
LOC: LABWHC1 12:32
PROVIDERS: ATTEND Family Medicine
DX: N18.3 Chronic kidney disease, stage 3 (moderate) (principal); N25.81 Secondary hyperparathyroidism of renal origin
CPT/HCPCS: 36415; 80048; 83735; 83970; 84100

== ENCOUNTER → 2018-06-28 | Outpatient (CLI) | payer BC ==
[2018-06-28 13:23] LABS: Basophils # (A) 0.1 k/uL (0-0.2); Basophils % (A) 1 %; Eosinophils # (A) 0.2 k/uL (0-0.7); Eosinophils % (A) 3 %; HCT 43.9 % (34.0-46.0); HGB 14.2 gm/dL (11.4-16.0); Lymphocytes # (A) 1.6 k/uL (1.0-4.8); Lymphocytes % (A) 27 %; MCH 28.4 pg (25.0-35.0); MCHC 32.4 g/dL (31.0-37.0); MCV 87.6 fL (80.0-100.0); Mean Platelet Volume 6.4; Monocytes # (A) 0.3 k/uL (0-1.0); Monocytes % (A) 5 %; Neutrophils # (A) 3.9 k/uL (1.3-7.7); Neutrophils % (A) 64 %; Platelet Count 236 k/uL (150-450); RBC 5.02 m/uL (3.80-5.40); RDW 13.1 % (11.5-15.5); WBC 6.1 k/uL (3.8-10.6)
[2018-06-28 19:28] LABS: Vitamin D 25 Hydroxy 44.4 ng/mL (30.0-100.0)
[2018-06-28 20:15] LABS: Albumin 4.1 g/dL (3.80-4.90); Albumin/Globulin Ratio 2.05 (1.60-3.17); Anion Gap 8.6 mmol/L (4.00-12.00); Carbon Dioxide 26.4 mmol/L (21.6-31.8); LDL Cholesterol,Calculated 60.2 mg/dL (0.0-131.0); Phosphorus 3.3 mg/dL (2.4-5.1); Potassium 4.9 mmol/L (3.5-5.5); Total Protein 6.1 g/dL (6.2-8.2); Uric Acid 5.5 mg/dL (2.9-7.7); VLDL Calculation 22.8 mg/dL (5.00-40.00)
[2018-06-28 20:23] LABS: T4, Free (Free Thyroxine) 1.4 ng/dL (0.80-1.80)
== END | disposition home or self-care (01) ==
LOC: LABWHC1 10:34
PROVIDERS: ATTEND Family Medicine
DX: E03.9 Hypothyroidism, unspecified (principal); J18.9 Pneumonia, unspecified organism; E78.5 Hyperlipidemia, unspecified; N18.3 Chronic kidney disease, stage 3 (moderate); E55.9 Vitamin D deficiency, unspecified; N25.81 Secondary hyperparathyroidism of renal origin
CPT/HCPCS: 36415; 80053; 80061; 82043; 82306; 82570; 83735; 83970; 84100; 84439; 84443; 84550; 85025

== ENCOUNTER → 2018-07-10 | Outpatient (CLI) | payer BC ==
--- NOTE | 2018-07-10 11:36 | XR ---
EXAMINATION TYPE: XR chest 2V DATE OF EXAM: 07/10/2018 COMPARISON: NONE HISTORY: Shortness of breath TECHNIQUE: Frontal and lateral views of the chest are obtained. FINDINGS: Scattered senescent parenchymal changes noted. No evidence for infiltrate. No evidence for atelectasis. Heart size is stable. Mediastinal structures are stable and grossly unremarkable. No evidence for hilar prominence. Degenerative changes dorsal spine. IMPRESSION: 1. No evidence for acute pulmonary disease.
== END | disposition home or self-care (01) ==
LOC: RADXRMAIN 10:30
PROVIDERS: ATTEND Family Medicine
DX: R05 Cough (principal)
CPT/HCPCS: 71046

== ENCOUNTER → 2019-02-11 | Outpatient (CLI) | payer BC ==
[2019-02-11 12:49] LABS: Basophils # (A) 0.1 k/uL (0-0.2); Basophils % (A) 1 %; Eosinophils # (A) 0.3 k/uL (0-0.7); Eosinophils % (A) 4 %; HGB 14.7 gm/dL (11.4-16.0); Lymphocytes # (A) 1.5 k/uL (1.0-4.8); Lymphocytes % (A) 20 %; MCH 29.7 pg (25.0-35.0); MCHC 34.3 g/dL (31.0-37.0); MCV 86.7 fL (80.0-100.0); Monocytes # (A) 0.4 k/uL (0-1.0); Monocytes % (A) 5 %; Neutrophils # (A) 5.1 k/uL (1.3-7.7); Neutrophils % (A) 68 %; Platelet Count 287 k/uL (150-450); RBC 4.96 m/uL (3.80-5.40); RDW 12.6 % (11.5-15.5); WBC 7.4 k/uL (3.8-10.6)
[2019-02-11 13:39] LABS: Erythrocyte Sedimentation Rate 8 mm/hr (0-20)
== END | disposition home or self-care (01) ==
LOC: LABWHC1 11:45
PROVIDERS: ATTEND Orthopaedic Surgery
DX: M76.62 Achilles tendinitis, left leg (principal); M79.672 Pain in left foot; Z96.651 Presence of right artificial knee joint
CPT/HCPCS: 36415; 85025; 85652; 86140

== ENCOUNTER → 2019-12-15 | Outpatient (CLI) | payer BC ==
--- NOTE | 2019-12-16 13:20 | MM ---
Reason for exam: screening (asymptomatic). Last mammogram was performed 2 years and 7 months ago. History: Patient is postmenopausal. Physical Findings: A clinical breast exam by your physician is recommended on an annual basis and results should be correlated with mammographic findings. MG Screening Mammo w CAD Bilateral CC and MLO view(s) were taken. Prior study comparison: May 03, 2017, bilateral MG screening mammo w CAD. May 23, 2013, bilateral digital screening mammo w/CAD. There are scattered fibroglandular densities. There are benign appearing round vascular calcifications bilaterally. There is no discrete abnormality. ASSESSMENT: Benign, BI-RAD 2 RECOMMENDATION: Routine screening mammogram of both breasts in 1 year.
== END | disposition home or self-care (01) ==
LOC: RADMAMWWP 10:43
PROVIDERS: ATTEND Family Medicine
DX: Z12.31 Encounter for screening mammogram for malignant neoplasm of breast (principal)
CPT/HCPCS: 77067

== ENCOUNTER → 2021-02-09 | Outpatient (CLI) | payer MEDICARE, BC ==
--- NOTE | 2021-02-09 16:49 | US ---
EXAMINATION TYPE: US kidneys/renal and bladder DATE OF EXAM: 02/09/2021 COMPARISON: NONE CLINICAL HISTORY: CKD Stage 3 N18.3. EXAM MEASUREMENTS: Right Kidney: 11.0x4.4x4.7 cm Left Kidney: 9.7x5.0x5.1 cm Right Kidney: No hydronephrosis or masses seen Left Kidney: No hydronephrosis or masses seen Bladder: wnl Bilateral Jets seen: Yes IMPRESSION: 1. Normal renal ultrasound
== END | disposition home or self-care (01) ==
LOC: RADUSWWP 12:05
PROVIDERS: ATTEND Internal Medicine
DX: N18.30 Chronic kidney disease, stage 3 unspecified (principal)
CPT/HCPCS: 76770

== ENCOUNTER 2021-04-06 15:58 | Observation (INO) | payer MEDICARE, BC ==
[2021-04-06] MEDS ORDERED: NITROGLYCERIN OINT 1 INCH/GM PACKET TOPICAL STA (16:48)
[2021-04-06] MEDS ORDERED: ASPIRIN 81 MG PO STA (16:48)
--- NOTE | 2021-04-06 16:51 | ED ---
General Adult HPI - General Chief complaint: Chest Pain Stated complaint: Chest Pain Time Seen by Provider: 04/06/21 16:00 Source: patient, RN notes reviewed, old records reviewed Mode of arrival: wheelchair Limitations: no limitations - History of Present Illness Initial comments: This is a 65-year-old female presents emergency Department who has a past medical history significant for hypertension. Patient states since Sunday she been having intermittent episodes of chest pain lasted between 5 and 20 minutes. Patient states when it occurs she's getting pain in both of her arms particularly the left arm. Patient states she has not noted any shortness of breath or diaphoretic episodes with it and currently she has a little bit of pressure in the anterior aspect of her chest. Patient states she has had no nausea vomiting. Patient denies any abdominal pain patient denies any diarrhea. Patient denies any back pain. Patient denies any recent fever chills or cough. Patient denies any swelling to the legs or calf tenderness. Patient does notnotice an association with exertion - Related Data Home Medications Medication Instructions Recorded Confirmed Atorvastatin [Lipitor] 40 mg PO HS 03/22/17 04/06/21 Levothyroxine Sodium [Synthroid] 88 mcg PO DAILY 04/06/21 04/06/21 Metoprolol Tartrate [Lopressor] 50 mg PO BID 04/06/21 04/06/21 amLODIPine [Norvasc] 10 mg PO DAILY 04/06/21 04/06/21 buPROPion SR [Wellbutrin SR] 150 mg PO BID 04/06/21 04/06/21 Allergies Allergy/AdvReac Type Severity Reaction Status Date / Time Sulfa (Sulfonamide Allergy Rash/Hives Verified 04/06/21 17:48 Antibiotics) Review of Systems ROS Statement: Those systems with pertinent positive or pertinent negative responses have been documented in the HPI. ROS Other: All systems not noted in ROS Statement are negative. Past Medical History Past Medical History: Hypertension Additional Past Medical History / Comment(s): hx rapid heart rate, heart murmur History of Any Multi-Drug Resistant Organisms: None Reported Past Surgical History: Section, Orthopedic Surgery, Tubal Ligation Additional Past Surgical History / Comment(s): carpel tunnel knee Past Anesthesia/Blood Transfusion Reactions: No Reported Reaction Past Psychological History: Depression Smoking Status: Never smoker Past Alcohol Use History: None Reported Past Drug Use History: None Reported - Past Family History Mother Family Medical History: No Reported History Additional Family Medical History / Comment(s): Denies any history of cancer or heart disease General Exam - General Exam Comments Initial Comments: GENERAL: Patient is well-developed and well-nourished. Patient is nontoxic and well- hydrated and is in mild distress. ENT: Neck is soft and supple. No significant lymphadenopathy is noted. Oropharynx is clear. Moist mucous membranes. Neck has full range of motion without eliciting any pain. EYES: The sclera were anicteric and conjunctiva were pink and moist. Extraocular movements were intact and pupils were equal round and reactive to light. Eyelids were unremarkable. PULMONARY: Unlabored respirations. Good breath sounds bilaterally. No audible rales rhonchi or wheezing was noted. CARDIOVASCULAR: There is a regular rate and rhythm without any murmurs gallops or rubs. ABDOMEN: Soft and nontender with normal bowel sounds. SKIN: Skin is clear with no lesions or rashes and otherwise unremarkable. NEUROLOGIC: Patient is alert and oriented x3. Cranial nerves II through XII are grossly intact. Motor and sensory are also intact. Normal speech, volume and content. Symmetrical smile. MUSCULOSKELETAL: Normal extremities with adequate strength and full range of motion. No lower extremity swelling or edema. No calf tenderness. LYMPHATICS: No significant lymphadenopathy is noted PSYCHIATRIC: Normal psychiatric evaluation. Limitations: no limitations Course Vital Signs 04/06/21 04/06/21 04/06/21 16:00 16:52 17:00 Temperature 97.9 F Pulse Rate 94 63 Respiratory 20 18 18 Rate Blood Pressure 183/88 152/72 O2 Sat by Pulse 98 99 Oximetry 04/06/21 04/06/21 04/06/21 17:04 17:30 18:00 Temperature Pulse Rate 74 60 63 Respiratory 18 18 18 Rate Blood Pressure 152/72 140/89 140/60 O2 Sat by Pulse 100 100 99 Oximetry 04/06/21 18:30 Temperature Pulse Rate 67 Respiratory 18 Rate Blood Pressure 141/60 O2 Sat by Pulse 99 Oximetry Medical Decision Making - Medical Decision Making EKG shows normal sinus rhythm at 84 bpm NE interval 242 QRS is 74 QT interval 366 QTC is 432. Patient's EKG shows no ST segment elevation or depression. Patient's chest x-ray shows no acute abnormality. Patient received aspirin and Nitropaste to the emergency department. I will back to reevaluate her she was no longer having a chest pain this time. I spoke to the [facility] agreed to admit the patient admitted the patient wrote admitting orders and consult cardiology continued aspirin and Nitropaste on the floor - Lab Data Result diagrams: 04/06/21 17:09 04/06/21 17:09 Lab Results 04/06/21 04/06/21 04/06/21 Range/Units 17:09 17:09 17:09 WBC 5.5 (3.8-10.6) k/uL RBC 4.97 (3.80-5.40) m/uL Hgb 15.0 (11.4-16.0) gm/dL Hct 45.5 (34.0-46.0) % MCV 91.5 (80.0-100.0) fL MCH 30.1 (25.0-35.0) pg MCHC 32.9 (31.0-37.0) g/dL RDW 13.1 (11.5-15.5) % Plt Count 253 (150-450) k/uL MPV 6.9 Neutrophils % 62 % Lymphocytes % 27 % Monocytes % 5 % Eosinophils % 3 % Basophils % 1 % Neutrophils # 3.4 (1.3-7.7) k/uL Lymphocytes # 1.5 (1.0-4.8) k/uL Monocytes # 0.3 (0-1.0) k/uL Eosinophils # 0.1 (0-0.7) k/uL Basophils # 0.0 (0-0.2) k/uL PT 10.6 (9.0-12.0) sec INR 1.0 (<1.2) APTT 23.6 (22.0-30.0) sec Sodium 137 (137-145) mmol/L Potassium 3.8 (3.5-5.1) mmol/L Chloride 105 (98-107) mmol/L Carbon Dioxide 23 (22-30) mmol/L Anion Gap 9 mmol/L BUN 19 H (7-17) mg/dL Creatinine 1.07 H (0.52-1.04) mg/dL Est GFR (CKD-EPI)AfAm 63 (>60 ml/min/1.73 sqM) Est GFR (CKD-EPI)NonAf 55 (>60 ml/min/1.73 sqM) Glucose 103 H (74-99) mg/dL Calcium 9.3 (8.4-10.2) mg/dL Magnesium 1.9 (1.6-2.3) mg/dL Total Bilirubin 1.0 (0.2-1.3) mg/dL AST 37 H (14-36) U/L ALT 49 H (4-34) U/L Alkaline Phosphatase 120 (38-126) U/L Troponin I (0.000-0.034) ng/mL Total Protein 6.9 (6.3-8.2) g/dL Albumin 4.0 (3.5-5.0) g/dL 04/06/21 Range/Units 17:09 WBC (3.8-10.6) k/uL RBC (3.80-5.40) m/uL Hgb (11.4-16.0) gm/dL Hct (34.0-46.0) % MCV (80.0-100.0) fL MCH (25.0-35.0) pg MCHC (31.0-37.0) g/dL RDW (11.5-15.5) % Plt Count (150-450) k/uL MPV Neutrophils % % Lymphocytes % % Monocytes % % Eosinophils % % Basophils % % Neutrophils # (1.3-7.7) k/uL Lymphocytes # (1.0-4.8) k/uL Monocytes # (0-1.0) k/uL Eosinophils # (0-0.7) k/uL Basophils # (0-0.2) k/uL PT (9.0-12.0) sec INR (<1.2) APTT (22.0-30.0) sec Sodium (137-145) mmol/L Potassium (3.5-5.1) mmol/L Chloride (98-107) mmol/L Carbon Dioxide (22-30) mmol/L Anion Gap mmol/L BUN (7-17) mg/dL Creatinine (0.52-1.04) mg/dL Est GFR (CKD-EPI)AfAm (>60 ml/min/1.73 sqM) Est GFR (CKD-EPI)NonAf (>60 ml/min/1.73 sqM) Glucose (74-99) mg/dL Calcium (8.4-10.2) mg/dL Magnesium (1.6-2.3) mg/dL Total Bilirubin (0.2-1.3) mg/dL AST (14-36) U/L ALT (4-34) U/L Alkaline Phosphatase (38-126) U/L Troponin I <0.012 (0.000-0.034) ng/mL Total Protein (6.3-8.2) g/dL Albumin (3.5-5.0) g/dL Disposition Clinical Impression: Chest pain Disposition: ADMITTED IP TO THIS HOSP Referrals: Antonio Rodriguez III, MD [Primary Care Provider] - 1-2 days Time of Disposition: 18:41
[2021-04-06 17:17] LABS: Basophils % (A) 1 %; Eosinophils # (A) 0.1 k/uL (0-0.7); Eosinophils % (A) 3 %; HCT 45.5 % (34.0-46.0); Lymphocytes # (A) 1.5 k/uL (1.0-4.8); Lymphocytes % (A) 27 %; MCH 30.1 pg (25.0-35.0); MCHC 32.9 g/dL (31.0-37.0); MCV 91.5 fL (80.0-100.0); Mean Platelet Volume 6.9; Monocytes # (A) 0.3 k/uL (0-1.0); Monocytes % (A) 5 %; Neutrophils # (A) 3.4 k/uL (1.3-7.7); Neutrophils % (A) 62 %; Platelet Count 253 k/uL (150-450); RBC 4.97 m/uL (3.80-5.40); RDW 13.1 % (11.5-15.5); WBC 5.5 k/uL (3.8-10.6)
[2021-04-06 17:27] LABS: Partial Thromboplastin Time 23.6 sec (22.0-30.0); Prothrombin Time 10.6 sec (9.0-12.0)
--- NOTE | 2021-04-06 17:32 | XR ---
EXAMINATION TYPE: XR chest 2V DATE OF EXAM: 04/06/2021 COMPARISON: 07/10/2018 HISTORY: 65 years Female. STUDY INDICATION GIVEN: Chest Pain . TECHNIQUE: Frontal and lateral chest radiographs. IMPRESSION: No focal airspace disease, pneumothorax or pleural effusion. Scattered lucencies in the upper lobes suggestive of COPD/emphysema, clinical correlation recommended . The cardiomediastinal silhouette is normal in appearance. Intrathoracic aorta atherosclerotic calcifi cations are suspected. No acute osseous abnormalities seen. Mild bilateral AC joint osteoarthrosis. Degenerative changes are seen in the spine similar to prior study.
[2021-04-06 17:34] LABS: Calcium 9.3 mg/dL (8.4-10.2); Magnesium 1.9 mg/dL (1.6-2.3); Potassium 3.8 mmol/L (3.5-5.1); Total Protein 6.9 g/dL (6.3-8.2)
[2021-04-06] MEDS ORDERED: NITROGLYCERIN SL TABS 0.4 MG TAB SUBLINGUAL PRN (18:41)
[2021-04-07] MEDS: NITROGLYCERIN OINT 1 INCH/GM PACKET TOPICAL SCH ×2 (00:18→05:04)
[2021-04-07] MEDS ORDERED: DOBUTamine DRIP for NUC MED 500 MG in DEXTROSE/WATER 1 250ML.BAG IV PRN (08:02)
[2021-04-07 08:39] VITALS: BP 124/74; PULSE 70; RESP 18; TEMP 98.1
[2021-04-07] MEDS ORDERED: ASPIRIN 81 MG PO SCH (09:00)
[2021-04-07] MEDS ORDERED: LOSARTAN 50 MG TAB PO SCH (09:00)
[2021-04-07] MEDS ORDERED: amLODIPine 10 MG TAB PO SCH (09:00)
[2021-04-07] MEDS ORDERED: ASPIRIN 325 MG TAB PO SCH (09:00)
--- NOTE | 2021-04-07 09:37 | P.CRDCN ---
History of Present Illness History of present illness: This is a 65 year old female with a past medical history of hypertension and hyperlipidemia. She does not follow with a physical therapy technician. We have been consulted for chest pain. Patient states her chest discomfort began 3 days ago. She describes it as chest tightness and squeezing pain. Located midsternal of her chest. She had associated left arm discomfort/heaviness and sometimes would feel as if she had a hot flash. She states it would last about 20 minutes, resolve on its own for hours and then return. No particular activity brings on the pain, sometimes the pain returns when she is relaxing. Exertion does not make the pain worse. She denies heart burn or acid reflux. She denies associated shortness of breath, nausea, vomiting, lightheadedness, dizziness, syncope or near syncope. No orthopnea or PND. She denies history of CAD, LA, Stroke, or diabetes. She denies family history of CAD. She denies any tobacco use. DIAGNOSTICS EKG reveals sinus rhythm, heart rate 84, T wave inversion in lead V2, slow R wave progression, no significant ST-T wave abnormalities. Prior EKG in 2018 with similar findings Telemetry tracings indicate sinus mechanism Chest xray no acute cardiopulmonary process Laboratory reviewed, troponin negative 3, sodium 137, potassium 3.8, BUN 19, serum creatinine 1.0, magnesium 1.9, AST 37, ALT 49, COVID-19 negative, CBC unremarkable Current home medications include metoprolol tartrate 50 mg twice a day, atorvastatin 40 mg daily, amlodipine 10 mg daily Most recent stress test Lexiscan 2015 revealed no evidence of reversible ischemia Most recent echocardiogram 08/2015 revealed an EF of 60%, mild mitral regurgitation, mild tricuspid regurgitation REVIEW OF SYSTEMS At the time of my exam: CONSTITUTIONAL: Denies fever or chills. CARDIOVASCULAR: Denies chest pain, shortness of breath, orthopnea, PND or palpitations. RESPIRATORY: Denies cough. GASTROINTESTINAL: Denies abdominal pain, diarrhea, constipation, nausea or vomiting. MUSCULOSKELETAL: Denies myalgias. NEUROLOGIC: Denies numbness, tingling, headache or weakness. ENDOCRINE: Denies fatigue, weight change, polydipsia or polyurina. GENITOURINARY: Denies burning, hematuria or urgency with micturation. HEMATOLOGIC: Denies history of anemia or bleeding. PHYSICAL EXAMINATION Blood pressure 124/74, heart 70, afebrile, saturations greater than 92% on room air CONSTITUTIONAL: No apparent distress. HEENT: Head is normocephalic. Pupils are equal, round. Sclerae anicteric. Mucous membranes of the mouth are moist. No JVD. No carotid bruit. CHEST EXAMINATION: Lungs are clear to auscultation. No chest wall tenderness is noted on palpation or with deep breathing. HEART EXAMINATION: Regular rate and rhythm. S1, S2 heard. No murmurs, gallops or rub. ABDOMEN: Soft, nontender. Positive bowel sounds. EXTREMITIES: 2+ peripheral pulses, no lower extremity edema and no calf tenderness. SKIN: warm, dry NEUROLOGIC EXAMINATION: Patient is awake, alert and oriented x3. ASSESSMENT Chest pain, atypical, acute coronary syndrome has been ruled out History of hypertension History of hyperlipidemia PLAN Discontinue metoprolol Start Losartan 50mg daily Continue statin and amlodipine An acute coronary event has been ruled out with no EKG evidence of ischemia and negative cardiac enzymes. Perform Dobutamine stress echo test to assess for stress induced cardiac ischemia. If abnormal will consider coronary angiography. Check Lipid panel and hemoglobin A1C If stress test is negative, ok to discharge patient from cardiology perspective and follow up outpatient with Dr. Hayden Thank you kindly for this consultation. Nurse Practitioner note has been reviewed, I agree with a documented findings and plan of care. Patient was seen and examined. Past Medical History Past Medical History: Hypertension Additional Past Medical History / Comment(s): hx rapid heart rate, heart murmur History of Any Multi-Drug Resistant Organisms: None Reported Past Surgical History: Section, Orthopedic Surgery, Tubal Ligation Additional Past Surgical History / Comment(s): carpel tunnel knee Past Anesthesia/Blood Transfusion Reactions: No Reported Reaction Past Psychological History: Depression Smoking Status: Never smoker Past Alcohol Use History: None Reported Past Drug Use History: None Reported - Past Family History Mother Family Medical History: No Reported History Additional Family Medical History / Comment(s): Denies any history of cancer or heart disease Medications and Allergies Home Medications Medication Instructions Recorded Confirmed Type Atorvastatin [Lipitor] 40 mg PO HS 03/22/17 04/06/21 History Levothyroxine Sodium [Synthroid] 88 mcg PO DAILY 04/06/21 04/06/21 History amLODIPine [Norvasc] 10 mg PO DAILY 04/06/21 04/06/21 History buPROPion SR [Wellbutrin SR] 150 mg PO BID 04/06/21 04/06/21 History Allergies Allergy/AdvReac Type Severity Reaction Status Date / Time Sulfa (Sulfonamide Allergy Rash/Hives Verified 04/06/21 17:48 Antibiotics) Physical Exam Vitals: Vital Signs Temp Pulse Pulse Resp BP BP Pulse Ox 04/07/21 02:10 98.0 F 67 17 139/78 99 04/06/21 23:20 98.6 F 18 99 04/06/21 23:00 70 18 160/78 95 04/06/21 18:30 67 18 141/60 99 04/06/21 18:00 63 18 140/60 99 04/06/21 17:30 60 18 140/89 100 04/06/21 17:04 74 18 152/72 100 04/06/21 17:00 63 18 152/72 99 04/06/21 16:52 18 04/06/21 16:00 97.9 F 94 20 183/88 98 Intake and Output 04/06/21 04/07/21 04/07/21 22:59 06:59 14:59 Other: # Voids 2 Weight 131.542 kg 131.542 kg Results 04/06/21 17:09 04/06/21 17:09 Cardiac Enzymes 04/06/21 04/06/21 04/06/21 Range/Units 17:09 17:09 19:56 AST 37 H (14-36) U/L Troponin I <0.012 <0.012 (0.000-0.034) ng/mL 04/06/21 Range/Units 23:00 AST (14-36) U/L Troponin I <0.012 (0.000-0.034) ng/mL Coagulation 04/06/21 Range/Units 17:09 PT 10.6 (9.0-12.0) sec APTT 23.6 (22.0-30.0) sec CBC 04/06/21 Range/Units 17:09 WBC 5.5 (3.8-10.6) k/uL RBC 4.97 (3.80-5.40) m/uL Hgb 15.0 (11.4-16.0) gm/dL Hct 45.5 (34.0-46.0) % Plt Count 253 (150-450) k/uL Comprehensive Metabolic Panel 04/06/21 Range/Units 17:09 Sodium 137 (137-145) mmol/L Potassium 3.8 (3.5-5.1) mmol/L Chloride 105 (98-107) mmol/L Carbon Dioxide 23 (22-30) mmol/L BUN 19 H (7-17) mg/dL Creatinine 1.07 H (0.52-1.04) mg/dL Glucose 103 H (74-99) mg/dL Calcium 9.3 (8.4-10.2) mg/dL AST 37 H (14-36) U/L ALT 49 H (4-34) U/L Alkaline Phosphatase 120 (38-126) U/L Total Protein 6.9 (6.3-8.2) g/dL Albumin 4.0 (3.5-5.0) g/dL Current Medications Generic Name Dose Route Start Last Admin Trade Name Freq PRN Reason Stop Dose Admin Aspirin 325 mg 04/07/21 09:00 Aspirin 325 Mg Tab PO DAILY SINAN Nitroglycerin 0.4 mg 04/06/21 18:41 Nitroglycerin Sl Tabs 0.4 Mg Tab SUBLINGUAL Q5M PRN Chest Pain Nitroglycerin 1 inch 04/07/21 00:00 04/07/21 05:04 Nitroglycerin Oint 1 Inch/Gm Packet TOPICAL Not Given Q6HR SINAN Intake and Output 04/06/21 04/07/21 04/07/21 22:59 06:59 14:59 Other: # Voids 2 Weight 131.542 kg 131.542 kg 04/06/21 17:09 04/06/21 17:09
[2021-04-07 10:40] LABS: Chol/HDL Ratio 2.68 Ratio; LDL Cholesterol,Calculated 64.7 mg/dL (0.0-131.0)
--- NOTE | 2021-04-07 13:53 | P.STRESS ---
- Stress Test Note Stress Test Results/Findings: Exam Performed: dobutamine stress echo with con Exam Date: 04/07/21 Reason for Exam: CP Height: 5 ft 2 in Weight: 131.54 kg Protocol: DOBUTAMINE STRESS ECHO W/ LUMASON Stage: 40 mcg Duration of Exercise: 12:08 Resting Heart Rate: 68 Resting Blood Pressure: 153/67 Maximum Achieved Heart Rate: 132 Maximum Achieved Blood Pressure: 153/67 85% PMHR: 132 100% PMHR: 165 METS: NA Technologist Comment: Stress Test Results/Findings: Patient received dobutamine per protocol No ECG evidence for ischemia No arrhythmias Baseline 2-D echo which is was suboptimal and Definity contrast was used Stepwise increment with dobutamine infusion No evidence for ischemia Excellent augmentation with between Normal images at the recovery without any wall motion abnormalities Impression Normal dobutamine stress echo
[2021-04-07] MEDS ORDERED: ATORVASTATIN 40 MG TAB PO SCH (21:00)
[2021-04-08] MEDS ORDERED: ASPIRIN 81 MG PO SCH (09:00)
== END 2021-04-07 14:37 | disposition home or self-care (01) ==
LOC: EC 15:58 → 6NMEDSUR 18:41
PROVIDERS: ADMIT Hospitalist; ATTEND Hospitalist
DX: R07.89 Other chest pain (principal); I10 Essential (primary) hypertension; E78.5 Hyperlipidemia, unspecified; M79.602 Pain in left arm; M79.601 Pain in right arm; F32.A Depression, unspecified; R01.1 Cardiac murmur, unspecified; I08.1 Rheumatic disorders of both mitral and tricuspid valves; Z20.822 Contact with and (suspected) exposure to COVID-19; Z79.899 Other long term (current) drug therapy; Z79.890 Hormone replacement therapy; Z88.2 Allergy status to sulfonamides
CPT/HCPCS: 99285; 36415; 93005; 80061; 80053; 83735; 84484; 85025; 85610; 85730; 83036; 87635; 71046; G0378 ×2; C8930; Q9950; 93351

== ENCOUNTER 2022-03-04 07:47 | Observation (INO) | payer MEDICARE, BC ==
[2022-03-04] MEDS ORDERED: NITROGLYCERIN SL TABS 0.4 MG TAB SUBLINGUAL STA (08:14)
[2022-03-04] MEDS ORDERED: ASPIRIN 81 MG PO STA (08:14)
--- NOTE | 2022-03-04 08:16 | ED ---
General Adult HPI - General Chief complaint: Chest Pain Stated complaint: Chest Time Seen by Provider: 03/04/22 08:06 Source: patient, RN notes reviewed Mode of arrival: ambulatory Limitations: no limitations - History of Present Illness Initial comments: Patient is a pleasant 66-year-old female presenting to the emergency department with concerns with chest discomfort. Symptoms have been intermittent over the past several days. Discomfort is more persistent today. Discomfort is mostly under the right breast. Discomfort is ascribed as tightness or squeezing. Discomfort is currently rated 5/10. No associated dyspnea, nausea, or diaphoresis. No history of similar symptoms previously. Patient previously was evaluated for chest discomfort in the past with negative workup. - Related Data Home Medications Medication Instructions Recorded Confirmed Atorvastatin [Lipitor] 40 mg PO HS 03/22/17 04/06/21 Levothyroxine Sodium [Synthroid] 88 mcg PO DAILY 04/06/21 04/06/21 amLODIPine [Norvasc] 10 mg PO DAILY 04/06/21 04/06/21 buPROPion SR [Wellbutrin SR] 150 mg PO BID 04/06/21 04/06/21 Previous Rx's Medication Instructions Recorded Losartan [Cozaar] 50 mg PO DAILY 30 Days #30 tab 04/07/21 Allergies Allergy/AdvReac Type Severity Reaction Status Date / Time Sulfa (Sulfonamide Allergy Rash/Hives Verified 03/04/22 08:00 Antibiotics) Review of Systems ROS Statement: Those systems with pertinent positive or pertinent negative responses have been documented in the HPI. ROS Other: All systems not noted in ROS Statement are negative. Constitutional: Denies: fever Eyes: Denies: eye pain ENT: Denies: ear pain Respiratory: Denies: cough Cardiovascular: Reports: as per HPI, chest pain Endocrine: Denies: fatigue Gastrointestinal: Denies: abdominal pain, nausea, vomiting Genitourinary: Denies: dysuria Skin: Denies: rash Neurological: Denies: weakness Past Medical History Past Medical History: Hypertension Additional Past Medical History / Comment(s): hx rapid heart rate, heart murmur History of Any Multi-Drug Resistant Organisms: None Reported Past Surgical History: Section, Orthopedic Surgery, Tubal Ligation Additional Past Surgical History / Comment(s): carpel tunnel knee Past Anesthesia/Blood Transfusion Reactions: No Reported Reaction Past Psychological History: Depression Smoking Status: Never smoker Past Alcohol Use History: None Reported Past Drug Use History: None Reported - Past Family History Mother Family Medical History: No Reported History Additional Family Medical History / Comment(s): Denies any history of cancer or heart disease General Exam Limitations: no limitations General appearance: alert, in no apparent distress Head exam: Present: normocephalic Eye exam: Present: normal appearance Neck exam: Present: normal inspection Respiratory exam: Present: normal lung sounds bilaterally Cardiovascular Exam: Present: regular rate, normal rhythm Expanded Peripheral pulses: 2+: Radial (R), Radial (L), Posterior Tibialis (R), Posterior Tibialis (L) GI/Abdominal exam: Present: soft, normal bowel sounds. Absent: distended, tenderness, guarding, rebound, rigid, pulsatile mass Extremities exam: Present: normal inspection. Absent: pedal edema, calf tenderness Neurological exam: Present: alert Psychiatric exam: Present: normal affect, normal mood Skin exam: Present: normal color Course Vital Signs 03/04/22 03/04/22 08:00 08:07 Temperature 98.6 F Pulse Rate 114 H Pulse Rate [ 80 Flight Attendant Ramp ] Respiratory 22 Rate Blood Pressure 144/79 O2 Sat by Pulse 99 Oximetry EKG Findings - EKG Results: EKG: interpreted by ERMD, sinus rhythm, normal axis, normal QRS, normal ST/T Medical Decision Making - Medical Decision Making Patient reevaluated and still having discomfort. Patient updated on results and plan. Dr. Herrera has been paged for admission for Dr. Rodriguez. - Lab Data Result diagrams: 03/04/22 08:16 03/04/22 08:16 Lab Results 03/04/22 03/04/22 03/04/22 Range/Units 08:16 08:16 08:16 WBC 8.7 (3.8-10.6) k/uL RBC 4.95 (3.80-5.40) m/uL Hgb 14.8 (11.4-16.0) gm/dL Hct 43.7 (34.0-46.0) % MCV 88.3 (80.0-100.0) fL MCH 30.0 (25.0-35.0) pg MCHC 34.0 (31.0-37.0) g/dL RDW 12.1 (11.5-15.5) % Plt Count 321 (150-450) k/uL MPV 7.5 Neutrophils % 65 % Lymphocytes % 24 % Monocytes % 4 % Eosinophils % 5 % Basophils % 1 % Neutrophils # 5.7 (1.3-7.7) k/uL Lymphocytes # 2.1 (1.0-4.8) k/uL Monocytes # 0.4 (0-1.0) k/uL Eosinophils # 0.4 (0-0.7) k/uL Basophils # 0.1 (0-0.2) k/uL PT 10.3 (9.0-12.0) sec INR 1.0 (<1.2) APTT 24.1 (22.0-30.0) sec D-Dimer 0.51 (<0.60) mg/L FEU Sodium 136 L (137-145) mmol/L Potassium 4.1 (3.5-5.1) mmol/L Chloride 104 (98-107) mmol/L Carbon Dioxide 20 L (22-30) mmol/L Anion Gap 12 mmol/L BUN 19 H (7-17) mg/dL Creatinine 1.27 H (0.52-1.04) mg/dL Est GFR (CKD-EPI)AfAm 51 (>60 ml/min/1.73 sqM) Est GFR (CKD-EPI)NonAf 44 (>60 ml/min/1.73 sqM) Glucose 131 H (74-99) mg/dL Calcium 9.0 (8.4-10.2) mg/dL Magnesium 2.0 (1.6-2.3) mg/dL Total Bilirubin 0.6 (0.2-1.3) mg/dL AST 34 (14-36) U/L ALT 46 H (4-34) U/L Alkaline Phosphatase 158 H (38-126) U/L Troponin I (0.000-0.034) ng/mL Total Protein 7.3 (6.3-8.2) g/dL Albumin 4.3 (3.5-5.0) g/dL 03/04/22 Range/Units 08:16 WBC (3.8-10.6) k/uL RBC (3.80-5.40) m/uL Hgb (11.4-16.0) gm/dL Hct (34.0-46.0) % MCV (80.0-100.0) fL MCH (25.0-35.0) pg MCHC (31.0-37.0) g/dL RDW (11.5-15.5) % Plt Count (150-450) k/uL MPV Neutrophils % % Lymphocytes % % Monocytes % % Eosinophils % % Basophils % % Neutrophils # (1.3-7.7) k/uL Lymphocytes # (1.0-4.8) k/uL Monocytes # (0-1.0) k/uL Eosinophils # (0-0.7) k/uL Basophils # (0-0.2) k/uL PT (9.0-12.0) sec INR (<1.2) APTT (22.0-30.0) sec D-Dimer (<0.60) mg/L FEU Sodium (137-145) mmol/L Potassium (3.5-5.1) mmol/L Chloride (98-107) mmol/L Carbon Dioxide (22-30) mmol/L Anion Gap mmol/L BUN (7-17) mg/dL Creatinine (0.52-1.04) mg/dL Est GFR (CKD-EPI)AfAm (>60 ml/min/1.73 sqM) Est GFR (CKD-EPI)NonAf (>60 ml/min/1.73 sqM) Glucose (74-99) mg/dL Calcium (8.4-10.2) mg/dL Magnesium (1.6-2.3) mg/dL Total Bilirubin (0.2-1.3) mg/dL AST (14-36) U/L ALT (4-34) U/L Alkaline Phosphatase (38-126) U/L Troponin I <0.012 (0.000-0.034) ng/mL Total Protein (6.3-8.2) g/dL Albumin (3.5-5.0) g/dL - Radiology Data Interpreted by me: Chest x-ray reveals no acute process Disposition Clinical Impression: Chest pain Disposition: ADMITTED IP TO THIS HOSP Is patient prescribed a controlled substance at d/c from ED?: No Referrals: Antonio Rodriguez III, MD [Primary Care Provider] - 1-2 days Time of Disposition: 10:35
[2022-03-04 08:36] LABS: Basophils # (A) 0.1 k/uL (0-0.2); Basophils % (A) 1 %; Eosinophils # (A) 0.4 k/uL (0-0.7); Eosinophils % (A) 5 %; HCT 43.7 % (34.0-46.0); HGB 14.8 gm/dL (11.4-16.0); Lymphocytes # (A) 2.1 k/uL (1.0-4.8); Lymphocytes % (A) 24 %; MCV 88.3 fL (80.0-100.0); Mean Platelet Volume 7.5; Monocytes # (A) 0.4 k/uL (0-1.0); Monocytes % (A) 4 %; Neutrophils # (A) 5.7 k/uL (1.3-7.7); Neutrophils % (A) 65 %; Platelet Count 321 k/uL (150-450); RBC 4.95 m/uL (3.80-5.40); RDW 12.1 % (11.5-15.5); WBC 8.7 k/uL (3.8-10.6)
--- NOTE | 2022-03-04 08:41 | XR ---
EXAMINATION TYPE: XR chest 2V DATE OF EXAM: 03/04/2022 COMPARISON: Chest x-ray April 06, 2021 HISTORY: Chest pain. TECHNIQUE: Frontal and lateral views of the chest are obtained. FINDINGS: There is no suspicious focal air space opacity, pleural effusion, or pneumothorax seen. T he cardiac silhouette size is stable and within normal limits. Multilevel spurring in the spine is re demonstrated. Overlying EKG leads again seen. IMPRESSION: No acute cardiopulmonary process. No significant change from prior.
[2022-03-04 08:47] LABS: Albumin 4.3 g/dL (3.5-5.0); Potassium 4.1 mmol/L (3.5-5.1); Total Bilirubin 0.6 mg/dL (0.2-1.3); Total Protein 7.3 g/dL (6.3-8.2)
[2022-03-04 08:53] LABS: Partial Thromboplastin Time 24.1 sec (22.0-30.0); Prothrombin Time 10.3 sec (9.0-12.0)
[2022-03-04] MEDS ORDERED: MORPHINE SULFATE 4 MG/ML SYRINGE IVP STA ×2 (09:36→10:34)
--- NOTE | 2022-03-04 09:51 | US ---
EXAMINATION TYPE: US gallbladder DATE OF EXAM: 03/04/2022 COMPARISON: NONE CLINICAL HISTORY: 66-year-old female with right upper quadrant pain and chest pain TECHNIQUE: Multiple sonographic images of the right upper quadrant are obtained. FINDINGS: EXAM MEASUREMENTS: Liver Length: 14.7 cm Gallbladder Wall: 0.27 cm CBD: 0.38 cm Right Kidney: 10.5 x 5.2 x 4.1 cm Pancreas: Pancreatic tail and much of the pancreatic body are obscured by overlying bowel gas. Parts visualized appear wnl Liver: Slightly heterogeneous and difficult to penetrate. No focal lesion. Gallbladder: wnl Evidence for sonographic Che's sign: No CBD: wnl Right Kidney: wnl IMPRESSION: The liver is difficult to penetrate with the ultrasound beam. This may reflect underlying hepatic joleen atosis. Correlate with LFTs, lipid profile, and patient risk factors. No gallstones or biliary ductal dilatation.
[2022-03-04] MEDS ORDERED: MORPHINE SULFATE 4 MG/ML SYRINGE IV PRN (10:35)
[2022-03-04] MEDS ORDERED: NITROGLYCERIN SL TABS 0.4 MG TAB SUBLINGUAL PRN (10:35)
[2022-03-04] MEDS ORDERED: ALPRAZolam 0.25 MG TAB PO PRN (12:03)
[2022-03-04] MEDS ORDERED: HYDROmorphone 0.5 MG/0.5 ML SYRINGE IVP PRN (12:03)
[2022-03-04] MEDS: PANTOPRAZOLE 40 MG/10 ML VIAL IVP SCH ×2 (12:29→20:18)
[2022-03-04] MEDS: HYDROcodone/APAP 5-325MG 1 EACH TAB PO PRN ×2 (12:42→23:44)
[2022-03-04] MEDS: SODIUM CHLORIDE 0.9% 1,000 ML IV SCH (13:51)
[2022-03-04] MEDS: NITROGLYCERIN OINT 1 INCH/GM PACKET TOPICAL SCH ×3 (14:17→23:43)
--- NOTE | 2022-03-04 18:57 | HP ---
HISTORY AND PHYSICAL CHIEF COMPLAINT: Chest pain. HISTORY OF PRESENT ILLNESS: This is a 66-year-old woman with a past medical history of hypertension, being followed by Dr. Rodriguez as outpatient, the patient is complaining of chest pain. Initially, the patient had right-sided chest pain, which was diffuse in character, under the breast. Subsequently, the patient had benign chest pain with some tenderness and patient was admitted for further evaluation and treatment. Troponins are negative. The EKG which I reviewed personally showed nonspecific ST-T changes. The patient had a stress test last year. There is no history of any fever, rigors, or chills. PAST MEDICAL HISTORY: Reviewed include hypertension, rest of the history and rest of the chart is reviewed. HOME MEDICATIONS: Reviewed include HydroDIURIL, dose and rest of medications reviewed. ALLERGIES: Sulfa. FAMILY HISTORY: No history of heart disease or strokes in the family. SOCIAL HISTORY: No history of smoking or alcohol. Retired from [employer]. REVIEW OF SYSTEMS: A 14-point review is negative except as mentioned earlier. PHYSICAL EXAMINATION: VITAL SIGNS: Pulse 83, blood pressure 108/75, respiration 18. HEENT: Conjunctivae normal. Oral mucosa moist. CARDIOVASCULAR: S1-S2 muffled. RESPIRATIONS: Clear to auscultation. ABDOMEN: Soft. NERVOUS SYSTEM: No focal deficits. SKIN: No ulcer, rash, or bleeding. JOINTS: No active deforming arthropathy. LABS: CBC within normal, creatinine 1.7, rest of the labs reviewed. ASSESSMENT: 1. Chest pain, for evaluation, possible unstable angina. 2. Hypertension. 3. Mild hyponatremia. 4. History of degenerative joint disease. 5. History of depression. RECOMMENDATIONS: This is a 66-year-old woman who presented with multiple complex medical issues. I would recommend symptomatic treatment. Repeat troponin, rule out myocardial infarction. A 2D echo with Doppler. Cardiology consultation. Prognosis guarded because of multiple complex medical issues. Further recommendations to follow. See orders for details. MMODL / IJN: [id number] /
[2022-03-04] MEDS: buPROPion SR 100 MG TABLET.ER PO SCH (20:18)
[2022-03-04] MEDS: VALSARTAN 160 MG TAB PO SCH (20:18)
[2022-03-04] MEDS ORDERED: ATORVASTATIN 40 MG TAB PO SCH (21:00)
[2022-03-04] MEDS ORDERED: amLODIPine 10 MG TAB PO SCH (21:00)
[2022-03-05] MEDS: SODIUM CHLORIDE 0.9% 1,000 ML IV SCH (01:26)
[2022-03-05] MEDS ORDERED: LEVOTHYROXINE 100 MCG TAB PO SCH (06:30)
[2022-03-05] MEDS: NITROGLYCERIN OINT 1 INCH/GM PACKET TOPICAL SCH (06:50)
[2022-03-05] MEDS ORDERED: ASPIRIN 325 MG TAB PO SCH (09:00)
[2022-03-05] MEDS ORDERED: hydroCHLOROthiazide 25 MG TAB PO SCH (09:00)
[2022-03-05] MEDS ORDERED: CALCIUM CARB-VIT D 500 MG-5 MCG TAB PO SCH (09:00)
[2022-03-05] MEDS: PANTOPRAZOLE 40 MG/10 ML VIAL IVP SCH (09:15)
[2022-03-05] MEDS: buPROPion SR 100 MG TABLET.ER PO SCH (09:16)
[2022-03-05] MEDS: VALSARTAN 160 MG TAB PO SCH (09:16)
[2022-03-05 10:49] VITALS: BP 114/72; PULSE 78; RESP 16; TEMP 97.8
[2022-03-05 11:37] LABS: Basophils # (A) 0.06 X 10*3/uL (0.00-0.10); Basophils % (A) 0.9 %; Eosinophils # (A) 0.37 X 10*3/uL (0.04-0.35); Eosinophils % (A) 5.3 %; HGB 12.7 g/dL (12.0-15.0); Immature Grans, Automated 0.3 %; Lymphocytes # (A) 2.22 X 10*3/uL (0.90-5.00); MCH 29.4 pg (27.0-32.0); MCHC 31.8 g/dL (32.0-37.0); MCV 92.6 fL (80.0-97.0); Mean Platelet Volume 9.6 fL (9.5-12.2); Monocytes # (A) 0.41 X 10*3/uL (0.20-1.00); Monocytes % (A) 5.9 %; NRBC Per 100 WBC 0 /100 WBCS (0.0-0.0); Neutrophils # (A) 3.85 X 10*3/uL (1.80-7.70); Neutrophils % (A) 55.6 %; Platelet Count 235 X 10*3/uL (140-440); RBC 4.32 X 10*6/uL (4.10-5.20); RDW 12.6 % (11.5-14.5); WBC 6.93 X 10*3/uL (4.50-10.00)
[2022-03-05 11:55] LABS: ALT 45 U/L (8-44); AST 26 U/L (13-35); Albumin 3.8 g/dL (3.8-4.9); Albumin/Globulin Ratio 1.88 (1.60-3.17); Alkaline Phosphatase 112 U/L (41-126); BUN/Creat Ratio 15.04 Ratio (12.00-20.00); Blood Urea Nitrogen 18.2 mg/dL (9.0-27.0); Calcium 8.7 mg/dL (8.7-10.3); Chloride 103 mmol/L (96-109); Chol/HDL Ratio 2.51 Ratio; Glucose 87 mg/dL (70-110); LDL Cholesterol,Calculated 52.8 mg/dL (0.0-131.0); Non-African American GFR(CKD) 46.6 (60.0-200.0); Potassium 4.1 mmol/L (3.5-5.5); Sodium 138 mmol/L (135-145); Total Protein 5.8 g/dL (6.2-8.2)
--- NOTE | 2022-03-05 20:10 | CONS ---
CONSULTATION CHIEF COMPLAINT: Right lower chest discomfort. HISTORY OF PRESENT ILLNESS: This is a 66-year-old lady with history of hypertension, hypothyroidism, and dyslipidemia, who presented to hospital complaining of lower chest discomfort. Her chest pain is primarily right-sided, diffuse, without clear-cut relieving or exacerbating factors. At the time of my evaluation, she is pain-free and hemodynamically improved. EKG did not reveal ischemic changes. Cardiac enzymes have been negative. When she is anxious to go home, her blood pressure is at the lower end of the normal, and she was slightly volume depleted with elevated BUN and creatinine. PAST MEDICAL HISTORY: Significant for hypertension, hypothyroidism, and dyslipidemia. MEDICATIONS AT HOME: Include: 1. HydroDIURIL. 2. Norvasc 10 daily. 3. Synthroid. 4. Lipitor. 5. Valsartan. ALLERGIES: Allergic to sulfa. FAMILY HISTORY: Negative for premature coronary artery disease. SOCIAL HISTORY: Negative for current smoking. She was a drug abuser. REVIEW OF SYSTEMS: HEENT: Unremarkable. CARDIAC: As described above. RESPIRATORY: Negative. GI: Negative. GENITOURINARY: Negative. ALLERGY/IMMUNOLOGY: Negative. SKIN: Negative. MUSCULOSKELETAL: Negative. ENDOCRINE: Negative. DERM: Negative. CONSTITUTIONAL: Negative. ONCOLOGICAL: Negative. CUT FILER: Negative. Rest of the system review is not relevant. PHYSICAL EXAMINATION: VITAL SIGNS: Afebrile. Vital signs are stable. NECK: There is no jugular venous distention. Carotid upstroke is normal. There is no bruit. CHEST: Reveals good air entry bilaterally. HEART: Reveals first and second heart sounds. No gallop. No murmur. No rub. ABDOMEN: Soft and nontender. EXTREMITIES: Did not reveal any edema. Peripheral pulses are felt. ASSESSMENT: 1. Atypical chest pain. 2. History of hypertension with low blood pressures on therapy. 3. Abdominal pain. PLAN: From cardiac standpoint, she does not require any further workup at this time. If she is still here tomorrow, I will obtain a 2D echo, and we can arrange for a stress test as outpatient. The patient had a dobutamine stress echo last year, that did not reveal any ischemia. The patient's symptoms are very atypical. She is hypotensive on current medical therapy. Please stop the HydroDIURIL and Norvasc prior to discharge. MMODL / IJN: [id number] /
[2022-03-06] MEDS ORDERED: ERGOCALCIFEROL 1,250 MCG (50,000 IU) CAPSULE PO SCH (09:00)
--- NOTE | 2022-03-06 11:16 | DS ---
DISCHARGE SUMMARY FINAL DIAGNOSES: 1. Chest pain, myocardial infarction ruled out. 2. Abdominal pain and negative gallbladder ultrasound. 3. Hypertension. 4. Mild hyponatremia. 5. History of degenerative joint disease. 6. History of depression. DISCHARGE DISPOSITION: The patient will be discharged in stable condition and guarded prognosis. HISTORY OF PRESENT ILLNESS: This 66-year-old woman with past medical history, was admitted with chest pain and abdominal pain, myocardial infarction ruled out. Cardiology, Dr. Escalante saw the patient, recommended outpatient stress test. PHYSICAL EXAMINATION: VITAL SIGNS: Stable. CARDIOVASCULAR: S1, S2. ABDOMEN: Soft. The patient had some minimal right upper quadrant tenderness, but ultrasound was negative. Recommend close followup in the outpatient setting. Currently, the LFTs showed ALT 46 and alkaline phosphatase 158. Troponins are negative. DISCHARGE MEDICATIONS: Continue the home medications. Also, Ecotrin 81 mg daily and Protonix 40 mg b.i.d. FOLLOWUP: Outpatient followup with Cardiology for outpatient stress test. Follow up Dr. Rodriguez in 2 to 3 days. Follow up with Cardiology as recommended. MMPAPAL / JONATHANN: [id number] /
== END 2022-03-05 10:46 | disposition home or self-care (01) ==
LOC: EC 07:47 → 6NMEDSUR 10:36
PROVIDERS: ADMIT Hospitalist; ATTEND Hospitalist
DX: R07.89 Other chest pain (principal); R10.9 Unspecified abdominal pain; I10 Essential (primary) hypertension; F32.A Depression, unspecified; E03.9 Hypothyroidism, unspecified; E78.5 Hyperlipidemia, unspecified; E87.1 Hypo-osmolality and hyponatremia; M19.90 Unspecified osteoarthritis, unspecified site; Z79.890 Hormone replacement therapy; Z79.899 Other long term (current) drug therapy; Z88.2 Allergy status to sulfonamides
CPT/HCPCS: 96361; 96375; 96376; 96374; 99285; 36415; 94760; 93005; 85379; 80061; 80053 ×2; 83735; 84484; 85025 ×2; 85610; 85730; 71046; 76705; G0378 ×2; J2270; S0106 ×2; C9113 ×2

== ENCOUNTER → 2022-03-31 | Outpatient (CLI) | payer MEDICARE, BC ==
[2022-03-31 16:51] LABS: Partial Thromboplastin Time 24.8 sec (22.0-30.0); Prothrombin Time 10.4 sec (9.0-12.0)
[2022-03-31 22:33] LABS: HCT 42.8 % (37.2-46.3); HGB 13.9 g/dL (12.0-15.0); MCH 29.3 pg (27.0-32.0); MCHC 32.5 g/dL (32.0-37.0); MCV 90.1 fL (80.0-97.0); Mean Platelet Volume 9.7 fL (9.5-12.2); NRBC Per 100 WBC 0 /100 WBCS (0.0-0.0); Platelet Count 270 X 10*3/uL (140-440); RBC 4.75 X 10*6/uL (4.10-5.20); RDW 12.3 % (11.5-14.5); WBC 6.04 X 10*3/uL (4.50-10.00)
[2022-03-31 23:04] LABS: Appearance,Urine Cloudy (Clear); Bilirubin,Urine Negative (Negative); Blood,Urine Trace (Negative); Color,Urine Yellow (Yellow); Ketones,Urine Trace mg/dL (Negative); Nitrite,Urine Negative (Negative); PH, Urine 5.5 (5.0-8.0); Urobilinogen,Urine 0.2 (0.2,1.0)
[2022-03-31 23:08] LABS: African American GFR (CKD) 43.4 (60.0-200.0); Albumin 4.4 g/dL (3.8-4.9); Albumin/Globulin Ratio 1.51 (1.60-3.17); Anion Gap 14.9 mmol/L (10.00-18.00); BUN/Creat Ratio 12.55 Ratio (12.00-20.00); Blood Urea Nitrogen 18.2 mg/dL (9.0-27.0); Calcium 9.9 mg/dL (8.7-10.3); Carbon Dioxide 24.2 mmol/L (20.0-27.5); Globulin 2.9 g/dL (1.6-3.3); Non-African American GFR(CKD) 37.4 (60.0-200.0); Potassium 4.7 mmol/L (3.5-5.5); Total Bilirubin 0.6 mg/dL (0.30-1.20); Total Protein 7.3 g/dL (6.2-8.2)
[2022-03-31 23:31] LABS: Bacteria,Urine None Seen /HPF (None Seen)
== END | disposition home or self-care (01) ==
LOC: LABPAT 13:30
PROVIDERS: ATTEND Orthopaedic Surgery
DX: Z01.812 Encounter for preprocedural laboratory examination (principal)
CPT/HCPCS: 36415; 80053; 81001; 85027; 85610; 85730; 87070

== ENCOUNTER 2022-08-02 09:52 | Emergency (ER) | payer MEDICARE, BC ==
[2022-08-02 10:04] VITALS: RESP 18; TEMP 97.1
[2022-08-02 10:51] LABS: Basophils % (A) 0 %; Eosinophils # (A) 0.2 k/uL (0-0.7); Eosinophils % (A) 2 %; HCT 39.2 % (34.0-46.0); HGB 13.1 gm/dL (11.4-16.0); Lymphocytes # (A) 1.1 k/uL (1.0-4.8); Lymphocytes % (A) 14 %; MCH 29.2 pg (25.0-35.0); MCHC 33.3 g/dL (31.0-37.0); MCV 87.6 fL (80.0-100.0); Mean Platelet Volume 7.4; Monocytes # (A) 0.2 k/uL (0-1.0); Monocytes % (A) 3 %; Neutrophils # (A) 6.1 k/uL (1.3-7.7); Neutrophils % (A) 80 %; Platelet Count 268 k/uL (150-450); RBC 4.48 m/uL (3.80-5.40); WBC 7.6 k/uL (3.8-10.6)
[2022-08-02 11:05] LABS: Albumin 4.2 g/dL (3.5-5.0); Calcium 9.3 mg/dL (8.4-10.2); Potassium 3.4 mmol/L (3.5-5.1); Total Bilirubin 0.8 mg/dL (0.2-1.3); Total Protein 6.9 g/dL (6.3-8.2)
--- NOTE | 2022-08-02 11:14 | ED ---
Abdominal Pain HPI - General Chief Complaint: Abdominal Pain Stated Complaint: bowel blockage Time Seen by Provider: 08/02/22 10:18 Source: patient, RN notes reviewed Mode of arrival: ambulatory Limitations: no limitations - History of Present Illness Initial Comments: Patient is a 66-year-old female presenting to the emergency room with complaints of abdominal cramping, nausea without vomiting and lack of bowel movement for 5 days. She reports that at home she has attempted the use of Senokot, glycerin suppositories, enema without results. She denies any other symptoms including any abdominal pain not directly related to cramping, previous changes in her bowel movements, unintentional weight changes, chest pain, shortness of breath, dysuria, urinary frequency, flank pain, fevers or chills. She reports that she typically has a bowel movement daily. She has a past medical history significant for hypertension, hypothyroidism and hyperlipidemia. - Related Data Home Medications Medication Instructions Recorded Confirmed Atorvastatin [Lipitor] 40 mg PO DAILY 03/22/17 08/02/22 Calcium Carbonate/Vitamin D3 1 tab PO DAILY 03/04/22 08/02/22 [Calcium 500 mg-Vit D3 5 mcg (200 Unit)] Ergocalciferol [Vitamin D2 (1250 1,250 mcg PO MO 03/04/22 08/02/22 Mcg = 20917 Iu)] Levothyroxine Sodium [Synthroid] 112 mcg PO DAILY 03/04/22 08/02/22 Valsartan 160 mg PO BID 03/04/22 08/02/22 buPROPion HCL [Wellbutrin SR] 200 mg PO BID 03/04/22 08/02/22 Famotidine [Pepcid] 20 mg PO DAILY PRN 04/19/22 08/02/22 Aspirin 325 mg PO DAILY 08/02/22 08/02/22 HYDROcodone/APAP 7.5-325MG [[place] 1 tab PO Q4H PRN 08/02/22 08/02/22 7.5-325] amLODIPine [Norvasc] 10 mg PO DAILY 08/02/22 08/02/22 hydroCHLOROthiazide 12.5 mg PO DAILY 08/02/22 08/02/22 Allergies Allergy/AdvReac Type Severity Reaction Status Date / Time Sulfa (Sulfonamide Allergy Rash/Hives Verified 08/02/22 12:19 Antibiotics) all over body Review of Systems ROS Statement: Those systems with pertinent positive or pertinent negative responses have been documented in the HPI. ROS Other: All systems not noted in ROS Statement are negative. Past Medical History Past Medical History: Hyperlipidemia, Hypertension, Renal Disease (CKD III Cr 1.5) Additional Past Medical History / Comment(s): hx rapid heart rate, heart murmur, hypothyroid History of Any Multi-Drug Resistant Organisms: None Reported Past Surgical History: Section, Orthopedic Surgery, Tubal Ligation Additional Past Surgical History / Comment(s): carpel tunnel knee Past Anesthesia/Blood Transfusion Reactions: No Reported Reaction Past Psychological History: Depression Smoking Status: Never smoker Past Alcohol Use History: None Reported Past Drug Use History: None Reported - Past Family History Mother Family Medical History: No Reported History Additional Family Medical History / Comment(s): Denies any history of cancer or heart disease General Exam Limitations: no limitations Course Vital Signs 08/02/22 08/02/22 08/02/22 10:00 10:44 12:42 Temperature 97.1 F L 97.1 F L Pulse Rate 98 88 75 Respiratory 18 18 18 Rate Blood Pressure 139/81 135/97 128/79 O2 Sat by Pulse 100 100 100 Oximetry Medical Decision Making - Medical Decision Making Was pt. sent in by a medical professional or institution (, PA, PHOTOGRAPHIC ENLARGER OPERATOR, urgent care, hospital, or prison...) When possible be specific @ -No Did you speak to anyone other than the patient for history (EMS, parent, family, police, friend...)? What history was obtained from this source @ -No Did you review nursing and triage notes (agree or disagree)? Why? @ -I reviewed and agree with nursing and triage notes Were old charts reviewed (outside hosp., previous admission, EMS record, old EKG, old radiological studies, urgent care reports/EKG's, prison records)? Report findings @ -Yes, previous creatinine levels available on chart trend reviewed. Differential Diagnosis (chest pain, altered mental status, abdominal pain women, abdominal pain men, vaginal bleeding, weakness, fever, dyspnea, syncope, headache, dizziness, GI bleed, back pain, seizure, CVA, palpatations, mental health, musculoskeletal)? @ -Differential Abdominal Pain Women: Appendicitis, Cholecystitis, diverticulosis, ischemic bowel, pancreatitis, hepatitis, UTI, gastroenteritis, AAA, incarcerated hernia, bowel obstruction, constipation, inflammatory bowel, hepatitis, peptic ulcer disease, splenic infarction, perforated viscus, vulvitis, ovarian torsion, PID, kidney stone, placenta abruption, this is not meant to be an all-inclusive list EKG interpreted by me (3pts min.). @ -None done X-rays interpreted by me (1pt min.). @ -KUB: Normal gas pattern. No evidence of moderate stool burden or fecal impaction. CT interpreted by me (1pt min.). @ -CT of the abdomen and pelvis: No free or air or free fluid, no evidence of obstruction. No significant fecal burden. U/S interpreted by me (1pt. min.). @ -None done What testing was considered but not performed or refused? (CT, X-rays, U/S, labs)? Why? @ -None What meds were considered but not given or refused? Why? @ -Enema considered for constipation but deferred due to lack of evidence of constipation or significant stool burden. Did you discuss the management of the patient with other professionals (professionals i.e. , PA, PHOTOGRAPHIC ENLARGER OPERATOR, lab, RT, psych nurse, social media specialist, ammunition specialist, teacher, data officer, pillowcase maker)? Give summary @ -No Was smoking cessation discussed for >3mins.? @ -No Was critical care preformed (if so, how long)? @ -No Were there social determinants of health that impacted care today? How? (Homelessness, low income, unemployed, alcoholism, drug addiction, transportation, low edu. Level, literacy, decrease access to med. care, [facility], rehab)? @ -No Was there de-escalation of care discussed even if they declined (Discuss DNR or withdrawal of care, Hospice)? DNR status @ -No What co-morbidities impacted this encounter? (DM, HTN, Smoking, COPD, CAD, Cancer, CVA, ARF, Chemo, Hep., AIDS, mental health diagnosis, sleep apnea, morbid obesity)? @ -None Was patient admitted / discharged? Hospital course, mention meds given and route, prescriptions, significant lab abnormalities, going to OR and other pertinent info. @ -66-year-old female presenting to the emergency room with complaints of abdominal cramping, nausea without vomiting and lack of bowel movement for 5 days. She reports that at home she has attempted the use of Senokot, glycerin suppositories, enema without results. Will begin workup for constipation with KUB prior to administration of enema to evaluate stool burden. Will also obtain CBC and CMP. KUB negative for significant stool burden. In the setting of abdominal cramping with no bowel movement and nausea without vomiting will obtain CT of the abdomen. Laboratory studies reveal normal CBC. CMP demonstrates low sodium 136 and low potassium 3.4; will replete orally and give some IV hydration. Creatinine elevation noted creatinine 1.53 with normal BUN evaluating previous trends patient appears to be in CKD stage III despite lack of documentation on chart. Glucose elevated 112, liver enzymes and alkaline phosphatase normal. Computed tomography scan of the abdomen with no abnormalities. Tolerated IV hydration and repleting of potassium orally well. All above findings discussed with patient at length. No indication for further diagnostic imaging or laboratory studies at this time. Encouraged avoidance of laxatives and suppositories. Good fiber intake and fluid intake encouraged. Encouraged follow- up with primary care provider. Questions and concerns answered. Return p arameters to the emergency room discussed. Will discharge home in stable condition with symptomatic management of nausea and change of bowel movements advising follow-up with primary care provider and staying well hydrated. Undiagnosed new problem with uncertain prognosis? @ -No Drug Therapy requiring intensive monitoring for toxicity (Heparin, Nitro, Insulin, Cardizem)? @ -No Were any procedures done? @ -No Diagnosis/symptom? @ -Changes in bowel movement Acute, or Chronic, or Acute on Chronic? @ -Acute Uncomplicated (without systemic symptoms) or Complicated (systemic symptoms)? @ -Uncomplicated Side effects of treatment? @ -No Exacerbation, Progression, or Severe Exacerbation? @ -No Poses a threat to life or bodily function? How? (Chest pain, [place], [place], pneumonia, PE, COPD, DKA, ARF, appy, cholecystitis, CVA, Diverticulitis, Homicidal, Suicidal, threat to staff... and all critical care pts) @ -No Diagnosis/symptom? @ -Nausea without vomiting Acute, or Chronic, or Acute on Chronic? @ -Acute Uncomplicated (without systemic symptoms) or Complicated (systemic symptoms)? @ -Uncomplicated Side effects of treatment? @ -none Exacerbation, Progression, or Severe Exacerbation] @ -no Poses a threat to life or bodily function? @ -no Case discussed with Dr. James.. - Lab Data Result diagrams: 08/02/22 10:44 08/02/22 10:44 Lab Results 08/02/22 08/02/22 Range/Units 10:44 10:44 WBC 7.6 (3.8-10.6) k/uL RBC 4.48 (3.80-5.40) m/uL Hgb 13.1 (11.4-16.0) gm/dL Hct 39.2 (34.0-46.0) % MCV 87.6 (80.0-100.0) fL MCH 29.2 (25.0-35.0) pg MCHC 33.3 (31.0-37.0) g/dL RDW 13.0 (11.5-15.5) % Plt Count 268 (150-450) k/uL MPV 7.4 Neutrophils % 80 % Lymphocytes % 14 % Monocytes % 3 % Eosinophils % 2 % Basophils % 0 % Neutrophils # 6.1 (1.3-7.7) k/uL Lymphocytes # 1.1 (1.0-4.8) k/uL Monocytes # 0.2 (0-1.0) k/uL Eosinophils # 0.2 (0-0.7) k/uL Basophils # 0.0 (0-0.2) k/uL Sodium 136 L (137-145) mmol/L Potassium 3.4 L (3.5-5.1) mmol/L Chloride 100 (98-107) mmol/L Carbon Dioxide 24 (22-30) mmol/L Anion Gap 12 mmol/L BUN 16 (7-17) mg/dL Creatinine 1.53 H (0.52-1.04) mg/dL Est GFR (CKD-EPI)AfAm 41 (>60 ml/min/1.73 sqM) Est GFR (CKD-EPI)NonAf 35 (>60 ml/min/1.73 sqM) Glucose 112 H (74-99) mg/dL Calcium 9.3 (8.4-10.2) mg/dL Total Bilirubin 0.8 (0.2-1.3) mg/dL AST 26 (14-36) U/L ALT 29 (4-34) U/L Alkaline Phosphatase 115 (38-126) U/L Total Protein 6.9 (6.3-8.2) g/dL Albumin 4.2 (3.5-5.0) g/dL Disposition Clinical Impression: Nausea, Change in bowel movement Disposition: HOME SELF-CARE Condition: Stable Instructions (If sedation given, give patient instructions): Constipation (DC) Additional Instructions: Please follow-up with your primary care provider. Stay well hydrated. May continue stool softeners as needed. Avoid use of laxatives and suppositories. Please return to the Emergency Department if symptoms worsen or any other concerns. Is patient prescribed a controlled substance at d/c from ED?: No Referrals: Antonio Rodriguez III, MD [Primary Care Provider] - 1-2 days Time of Disposition: 12:32
--- NOTE | 2022-08-02 11:15 | XR ---
EXAMINATION TYPE: XR KUB DATE OF EXAM: 08/02/2022 10:50 AM CLINICAL HISTORY: Abdominal pain. TECHNIQUE: Two Upright KUB images of the abdomen are obtained. COMPARISON: None. FINDINGS: Scattered gas is seen in non-distended small and large bowel loops. Gas is seen in nondiste nded stomach. Slight scoliotic curvature with multilevel spurring in the thoracolumbar spine. There i s no visceromegaly, pneumoperitoneum, or abnormal calcification appreciated. The lung bases are clear . IMPRESSION: Overall nonobstructive bowel gas pattern.
[2022-08-02] MEDS ORDERED: POTASSIUM CHLORIDE ER 20 MEQ TAB.ER PO STA (11:22)
[2022-08-02] MEDS ORDERED: SODIUM CHLORIDE 0.9% 1,000 ML IV STA (11:22)
--- NOTE | 2022-08-02 12:04 | CT ---
EXAMINATION TYPE: CT abdomen pelvis wo con DATE OF EXAM: 08/02/2022 HISTORY: Nausea, no BM x5 days without stool burden on KUB. CT DLP: 1335.4 mGycm. Automated Exposure Control for Dose Reduction was Utilized. TECHNIQUE: CT scan of the abdomen and pelvis is performed without oral or IV contrast. COMPARISON: NONE FINDINGS: Within the limitations of a non-contrast study, the following observations are made. LUNG BASES: No significant abnormality is appreciated. LIVER/GB: No significant abnormality is appreciated. PANCREAS: No significant abnormality is seen. SPLEEN: No significant abnormality is seen. ADRENALS: No significant abnormality is seen. KIDNEYS: Asymmetric diminished size to right kidney versus left kidney. No renal stones or hydronephr osis is seen bilaterally. Partially exophytic 2.2 cm thin-walled cyst upper pole left kidney axial im age 34. BOWEL: No suspicious small large bowel dilatation. No significant colonic fecal burden. GENITAL ORGANS: No gross abnormality seen. LYMPH NODES: No greater than 1cm abdominal or pelvic lymph nodes are appreciated. OSSEOUS STRUCTURES: Qbgp-[id number]-[id number] disc space narrowing with vacuum disc phenomenon at L5-S1 level. OTHER: Small fat-containing umbilical hernia. IMPRESSION: No bowel obstruction. No significant colonic fecal stasis. No acute findings identified o n this study
[2022-08-02 12:43] VITALS: BP 128/79; PULSE 75
== END 2022-08-02 12:46 | disposition home or self-care (01) ==
LOC: EC 09:52
DX: R11.0 Nausea (principal); R19.4 Change in bowel habit; I12.9 Hypertensive chronic kidney disease with stage 1 through stage 4 chronic kidney disease, or unspecified chronic kidney disease; N18.30 Chronic kidney disease, stage 3 unspecified; E78.5 Hyperlipidemia, unspecified; E03.9 Hypothyroidism, unspecified; F32.A Depression, unspecified; Z79.890 Hormone replacement therapy; Z79.82 Long term (current) use of aspirin; Z79.899 Other long term (current) drug therapy; Z88.2 Allergy status to sulfonamides
CPT/HCPCS: 36415; 74018; 74176; 80053; 85025; 96360; 99285

== ENCOUNTER → 2022-08-03 | Outpatient (CLI) | payer MEDICARE, BC ==
--- NOTE | 2022-08-03 17:58 | US ---
EXAMINATION TYPE: US abdomen complete DATE OF EXAM: 08/03/2022 COMPARISON: CT 08/02/2022 CLINICAL INDICATION: Female, 66 years old with history of N18.32 CKD; abn labs TECHNIQUE: Multiple sonographic images of the abdomen are obtained. FINDINGS: EXAM MEASUREMENTS: Liver Length: 15.1 cm Gallbladder Wall: 0.3 cm CBD: 0.5 cm Spleen: 9.9 cm Right Kidney: 8.5 x 3.7 x 4.4 cm Left Kidney: 9.0 x 3.4 x 4.6 cm ROLL FILLER NOTES: habitus and bowel gas limits exam Pancreas: Only small portions of the pancreatic neck and body are seen. Remainder obscured by bowel gas shadowing. Liver: intercostal images due to bowel gas and habitus. Visualized portions show no gross adenopathy . Gallbladder: wnl Evidence for sonographic Che's sign: no CBD: wnl Spleen: wnl Right Kidney: wnl Left Kidney: 2.2cm superior pole round hypoechoic lesion, likely cysts given through transmission. Upper IVC: wnl Abd Aorta: wnl IMPRESSION: 1. Suspect a benign 2.2 cm cyst upper pole left kidney. Internal echoes could be artifactual or could represent debris. Precautionary 6 month follow-up ultrasound to reassess. 2. No gallstones or biliary ductal dilatation. 3. No hydronephrosis.
== END | disposition home or self-care (01) ==
LOC: RADUSWWP 09:25
PROVIDERS: ATTEND Family Medicine
DX: N18.32 Chronic kidney disease, stage 3b (principal)
CPT/HCPCS: 76700

== ENCOUNTER → 2022-12-29 | Outpatient (CLI) | payer MEDICARE, BC ==
--- NOTE | 2023-01-01 09:04 | MM ---
Reason for Exam: Screening (asymptomatic). Last mammogram was performed 3 year(s) and 0 month(s) ago. Patient History: Menarche at age 13. First Full-Term at age 27. Postmenopausal. Patient has history of breast feeding. Risk Values: Gertrudis 5 year model risk: 1.9%. NCI Lifetime model risk: 6.4%. Prior Study Comparison: 03/01/2012 Bilateral Screening Mammogram, [facility]. 05/23/2013 Bilateral Screening Mammogram, [facility]. 05/03/2017 Bilateral Screening Mammogram, [facility]. 12/15/2019 Bilateral Screening Mammogram, [facility]. Tissue Density: The breast tissue is heterogeneously dense. This may lower the sensitivity of mammography. Findings: Analyzed By CAD. There is no suspicious group of microcalcifications or new suspicious mass. Benign-appearing calcifications bilaterally. Overall Assessment: Benign, BI-RAD 2 Management: Screening Mammogram of both breasts in [address] [facility] will attempt to contact patient to return for supplemental views and ultrasound if indicated. Patient should continue monthly self-breast exams. A clinical breast exam by your physician is recommended on an annual basis. This exam should not preclude additional follow-up of suspicious palpable abnormalities. Note on Gertrudis scores and lifetime risk: 1. A Gertrudis score greater than 3% is considered moderate risk. If this is the case, consider specialist referral to assess eligibility for a risk reducing agent. 2. If overall lifetime risk for the development of breast cancer is 20% or higher, the patient may qualify for future screening with alternating mammogram and breast MRI. Electronically signed and approved by: James Rios DO
== END | disposition home or self-care (01) ==
LOC: RADMAMWWP 11:48
PROVIDERS: ATTEND Family Medicine
DX: Z12.31 Encounter for screening mammogram for malignant neoplasm of breast (principal); Z78.0 Asymptomatic menopausal state
CPT/HCPCS: 77063; 77067

== ENCOUNTER 2024-03-03 00:29 | Emergency (ER) | payer MEDICARE, BC ==
[2024-03-03 00:37] VITALS: TEMP 97.5
--- NOTE | 2024-03-03 00:51 | ED ---
Arrhythmia/Palpitations HPI - General Chief Complaint: Arrhythmia/Palpitations Stated Complaint: Hypertension, Jaw Pain Time Seen by Provider: 03/03/24 00:41 Source: patient, RN notes reviewed, old records reviewed Mode of arrival: ambulatory Limitations: no limitations - Related Data Home Medications Medication Instructions Recorded Confirmed Atorvastatin [Lipitor] 40 mg PO DAILY 03/22/17 08/02/22 Calcium Carbonate/Vitamin D3 1 tab PO DAILY 03/04/22 08/02/22 [Calcium 500 mg-Vit D3 5 mcg (200 Unit)] Ergocalciferol [Vitamin D2 (1250 1,250 mcg PO MO 03/04/22 08/02/22 Mcg = 10224 Iu)] Levothyroxine Sodium [Synthroid] 112 mcg PO DAILY 03/04/22 08/02/22 Valsartan 160 mg PO BID 03/04/22 08/02/22 buPROPion HCL [Wellbutrin SR] 200 mg PO BID 03/04/22 08/02/22 Famotidine [Pepcid] 20 mg PO DAILY PRN 04/19/22 08/02/22 Aspirin 325 mg PO DAILY 08/02/22 08/02/22 HYDROcodone/APAP 7.5-325MG [[place] 1 tab PO Q4H PRN 08/02/22 08/02/22 7.5-325] amLODIPine [Norvasc] 10 mg PO DAILY 08/02/22 08/02/22 hydroCHLOROthiazide 12.5 mg PO DAILY 08/02/22 08/02/22 Allergies Allergy/AdvReac Type Severity Reaction Status Date / Time Sulfa (Sulfonamide Allergy Rash/Hives Verified 08/02/22 12:19 Antibiotics) all over body Review of Systems ROS Statement: Those systems with pertinent positive or pertinent negative responses have been documented in the HPI. ROS Other: All systems not noted in ROS Statement are negative. Past Medical History Past Medical History: Hyperlipidemia, Hypertension, Renal Disease Additional Past Medical History / Comment(s): hx rapid heart rate, heart murmur, hypothyroid History of Any Multi-Drug Resistant Organisms: None Reported Past Surgical History: Section, Orthopedic Surgery, Tubal Ligation Additional Past Surgical History / Comment(s): carpel tunnel knee Past Anesthesia/Blood Transfusion Reactions: No Reported Reaction Past Psychological History: Depression Smoking Status: Never smoker Past Alcohol Use History: None Reported Past Drug Use History: None Reported - Past Family History Mother Family Medical History: No Reported History Additional Family Medical History / Comment(s): Denies any history of cancer or heart disease General Exam Limitations: no limitations General appearance: alert, in no apparent distress Head exam: Present: atraumatic, normocephalic, normal inspection Eye exam: Present: normal appearance, PERRL, EOMI. Absent: scleral icterus, conjunctival injection, periorbital swelling ENT exam: Present: normal exam, mucous membranes moist Neck exam: Present: normal inspection. Absent: tenderness, meningismus, lymphadenopathy Respiratory exam: Present: normal lung sounds bilaterally. Absent: respiratory distress, wheezes, rales, rhonchi, stridor Cardiovascular Exam: Present: regular rate, normal rhythm, normal heart sounds. Absent: systolic murmur, diastolic murmur, rubs, gallop, clicks GI/Abdominal exam: Present: soft, normal bowel sounds. Absent: distended, tenderness, guarding, rebound, rigid Extremities exam: Present: normal inspection, full ROM, normal capillary refill. Absent: tenderness, pedal edema, joint swelling, calf tenderness Back exam: Present: normal inspection Neurological exam: Present: alert, oriented X3, CN II-XII intact Psychiatric exam: Present: normal affect, normal mood Skin exam: Present: warm, dry, intact, normal color. Absent: rash Course Vital Signs 03/03/24 03/03/24 03/03/24 00:30 00:45 02:10 Temperature 97.5 F L Pulse Rate 110 H 87 86 Respiratory 22 16 15 Rate Blood Pressure 161/79 155/86 138/77 O2 Sat by Pulse 98 95 97 Oximetry - Reevaluation(s) Reevaluation #1: 03/03/24 Medical records reviewed Reevaluation #2: 03/03/24 Symptoms unchanged Reevaluation #3: 03/03/24 Patient informed of results questions answered Reevaluation #4: Was pt. sent in by a medical professional or institution (, PA, BOTTLING ROOM WORKER, urgent care, hospital, or [facility]...) When possible be specific @ -no Did you speak to anyone other than the patient for history (EMS, parent, family, police, friend...)? What history was obtained from this source @ -no Did you review nursing and triage notes (agree or disagree)? Why? @ -agree Are old charts reviewed (outside hosp., previous admission, EMS record, old EKG, old radiological studies, urgent care reports/EKG's, [facility] records)? Report findings @ -yes Differential Diagnosis (chest pain, altered mental status, abdominal pain women, abdominal pain men, vaginal bleeding, weakness, fever, dyspnea, syncope, headache, dizziness, GI bleed, back pain, seizure, CVA, palpatations, mental health, musculoskeletal)? @ -prior EKG interpreted by me (3pts min.). @ -yes X-rays interpreted by me (1pt min.). @ -yes negative for acute disease CT interpreted by me (1pt min.). @ -no U/S interpreted by me (1pt. min.). @ -no What testing was considered but not performed or refused? (CT, X-rays, U/S, labs)? Why? @ -none What meds were considered but not given or refused? Why? @ -none Did you discuss the management of the patient with other professionals (professionals i.e. , PA, BOTTLING ROOM WORKER, lab, RT, psych nurse, social psychologist, sample grinder, teacher, financial aid officer, field nurse case manager)? Give summary @ -no Was smoking cessation discussed for >3mins.? @ -no Was critical care preformed (if so, how long)? @ -no Were there social determinants of health that impacted care today? How? (Homelessness, low income, unemployed, alcoholism, drug addiction, transportati on, low edu. Level, literacy, decrease access to med. care, fpc, rehab)? @ -none Was there de-escalation of care discussed even if they declined (Discuss DNR or withdrawal of care, Hospice)? DNR status @ -no What co-morbidities impacted this encounter? (DM, HTN, Smoking, COPD, CAD, Cancer, CVA, ARF, Chemo, Hep., AIDS, mental health diagnosis, sleep apnea, morbid obesity)? @ -none Was patient admitted / discharged? Hospital course, mention meds given and route, prescriptions, significant lab abnormalities, going to OR and other pertinent info. @ - Undiagnosed new problem with uncertain prognosis? @ -no Drug Therapy requiring intensive monitoring for toxicity (Heparin, Nitro, Insulin, Cardizem)? @ -no Were any procedures done? @ -no Diagnosis/symptom? @ - Acute, or Chronic, or Acute on Chronic? @ -Acute Uncomplicated (without systemic symptoms) or Complicated (systemic symptoms)? @ -Complicated Side effects of treatment? @ -no Exacerbation, Progression, or Severe Exacerbation? @ -exacerbation Poses a threat to life or bodily function? How? (Chest pain, USA, CA, pneumonia, PE, COPD, DKA, ARF, appy, cholecystitis, CVA, Diverticulitis, Homicidal, Suicidal, threat to staff... and all critical care pts) @ -yes Reevaluation #5: Differential Palpitations Ventricular arrhythmias, atrial arrhythmias, myocardial infarction, anemia, thyrotoxicosis, electrolyte imbalance, hypokalemia, pulmonary embolism, pulmonary disease, drugs, alcohol, anxiety, stress.... This is not meant to be an all-inclusive list. Differential Chest Pain: Stable Angina, Unstable Angina, STEMI, NSTEMI Aortic Dissection, Pneumothorax, Musculoskeletal, Esophageal Spasm GERD, Cholecystitis, Pancreatitis, Zoster, this is not meant to be an all-inclusive list. EKG Findings - EKG Comments: EKG Findings:: EKG is sinus 96 HI 155 QRS 80 QTc 394 - EKG Results: EKG: interpreted by JIAN Medical Decision Making - Lab Data Result diagrams: 03/03/24 01:20 03/03/24 01:20 Lab Results 03/03/24 03/03/24 03/03/24 Range/Units 01:20 01:20 01:20 WBC 7.1 (3.8-10.6) k/uL RBC 4.60 (3.80-5.40) m/uL Hgb 13.5 (11.4-16.0) gm/dL Hct 40.9 (34.0-46.0) % MCV 89.1 (80.0-100.0) fL MCH 29.5 (25.0-35.0) pg MCHC 33.1 (31.0-37.0) g/dL RDW 12.7 (11.5-15.5) % Plt Count 253 (150-450) k/uL MPV 7.2 Neutrophils % 71 % Lymphocytes % 19 % Monocytes % 5 % Eosinophils % 3 % Basophils % 1 % Neutrophils # 5.1 (1.3-7.7) k/uL Lymphocytes # 1.3 (1.0-4.8) k/uL Monocytes # 0.4 (0-1.0) k/uL Eosinophils # 0.2 (0-0.7) k/uL Basophils # 0.0 (0-0.2) k/uL PT 10.8 (10.0-12.5) sec INR 1.0 (<1.2) APTT 25.5 (22.0-30.0) sec Sodium 137 (137-145) mmol/L Potassium 4.1 (3.5-5.1) mmol/L Chloride 106 (98-107) mmol/L Carbon Dioxide 22 (22-30) mmol/L Anion Gap 9 mmol/L BUN 22 H (7-17) mg/dL Creatinine 1.38 H (0.52-1.04) mg/dL Est GFR (CKD-EPI)AfAm 45 (>60 ml/min/1.73 sqM) Est GFR (CKD-EPI)NonAf 39 (>60 ml/min/1.73 sqM) Glucose 111 H (74-99) mg/dL Calcium 9.5 (8.4-10.2) mg/dL Magnesium 2.2 (1.6-2.3) mg/dL Total Bilirubin 0.7 (0.2-1.3) mg/dL AST 33 (14-36) U/L ALT 39 H (4-34) U/L Alkaline Phosphatase 160 H (38-126) U/L Troponin I (0.000-0.034) ng/mL NT-Pro-B Natriuret Pep 41 pg/mL Total Protein 7.2 (6.3-8.2) g/dL Albumin 4.4 (3.5-5.0) g/dL 03/03/24 Range/Units 01:20 WBC (3.8-10.6) k/uL RBC (3.80-5.40) m/uL Hgb (11.4-16.0) gm/dL Hct (34.0-46.0) % MCV (80.0-100.0) fL MCH (25.0-35.0) pg MCHC (31.0-37.0) g/dL RDW (11.5-15.5) % Plt Count (150-450) k/uL MPV Neutrophils % % Lymphocytes % % Monocytes % % Eosinophils % % Basophils % % Neutrophils # (1.3-7.7) k/uL Lymphocytes # (1.0-4.8) k/uL Monocytes # (0-1.0) k/uL Eosinophils # (0-0.7) k/uL Basophils # (0-0.2) k/uL PT (10.0-12.5) sec INR (<1.2) APTT (22.0-30.0) sec Sodium (137-145) mmol/L Potassium (3.5-5.1) mmol/L Chloride (98-107) mmol/L Carbon Dioxide (22-30) mmol/L Anion Gap mmol/L BUN (7-17) mg/dL Creatinine (0.52-1.04) mg/dL Est GFR (CKD-EPI)AfAm (>60 ml/min/1.73 sqM) Est GFR (CKD-EPI)NonAf (>60 ml/min/1.73 sqM) Glucose (74-99) mg/dL Calcium (8.4-10.2) mg/dL Magnesium (1.6-2.3) mg/dL Total Bilirubin (0.2-1.3) mg/dL AST (14-36) U/L ALT (4-34) U/L Alkaline Phosphatase (38-126) U/L Troponin I <0.012 (0.000-0.034) ng/mL NT-Pro-B Natriuret Pep pg/mL Total Protein (6.3-8.2) g/dL Albumin (3.5-5.0) g/dL Disposition Clinical Impression: Chest pain, Palpitations, Hypertension Disposition: HOME SELF-CARE Condition: Good Instructions (If sedation given, give patient instructions): Heart Palpitations (ED) Is patient prescribed a controlled substance at d/c from ED?: No Referrals: Alan Aguirre MD [Primary Care Provider] - 1-2 days Time of Disposition: 02:00
[2024-03-03 01:32] LABS: Basophils % (A) 1 %; Eosinophils # (A) 0.2 k/uL (0-0.7); Eosinophils % (A) 3 %; HCT 40.9 % (34.0-46.0); HGB 13.5 gm/dL (11.4-16.0); Lymphocytes # (A) 1.3 k/uL (1.0-4.8); Lymphocytes % (A) 19 %; MCH 29.5 pg (25.0-35.0); MCHC 33.1 g/dL (31.0-37.0); MCV 89.1 fL (80.0-100.0); Mean Platelet Volume 7.2; Monocytes # (A) 0.4 k/uL (0-1.0); Monocytes % (A) 5 %; Neutrophils # (A) 5.1 k/uL (1.3-7.7); Neutrophils % (A) 71 %; Platelet Count 253 k/uL (150-450); RDW 12.7 % (11.5-15.5); WBC 7.1 k/uL (3.8-10.6)
[2024-03-03 01:43] LABS: Partial Thromboplastin Time 25.5 sec (22.0-30.0); Prothrombin Time 10.8 sec (10.0-12.5)
[2024-03-03 01:52] LABS: ALT 39 U/L (4-34); AST 33 U/L (14-36); African American GFR (CKD) 45 (>60 ml/min/1.73 sqM); Albumin 4.4 g/dL (3.5-5.0); Alkaline Phosphatase 160 U/L (38-126); Anion Gap 9 mmol/L; Blood Urea Nitrogen 22 mg/dL (7-17); Calcium 9.5 mg/dL (8.4-10.2); Carbon Dioxide 22 mmol/L (22-30); Chloride 106 mmol/L (98-107); Glucose 111 mg/dL (74-99); Magnesium 2.2 mg/dL (1.6-2.3); Non-African American GFR(CKD) 39 (>60 ml/min/1.73 sqM); Potassium 4.1 mmol/L (3.5-5.1); Sodium 137 mmol/L (137-145); Total Bilirubin 0.7 mg/dL (0.2-1.3); Total Protein 7.2 g/dL (6.3-8.2)
[2024-03-03 02:00] LABS: NT-Pro-B-Type Natriuretic Pept 41 pg/mL
[2024-03-03 02:11] VITALS: BP 138/77; PULSE 86; RESP 15
== END 2024-03-03 02:12 | disposition home or self-care (01) ==
LOC: EC 00:29
DX: R00.2 Palpitations (principal); I10 Essential (primary) hypertension; R07.9 Chest pain, unspecified; Z88.2 Allergy status to sulfonamides
CPT/HCPCS: 36415; 80053; 83735; 83880; 84484; 85025; 85610; 85730; 93005; 99285

== ENCOUNTER → 2024-07-23 | Outpatient (CLI) | payer MEDICARE, BC ==
--- NOTE | 2024-07-23 13:35 | BD ---
EXAMINATION TYPE: Axial Bone Density DATE OF EXAM: 07/23/2024 CLINICAL HISTORY: 68 years old Female. ICD-10 CODE: M85.89 DISORDER OF BONE DENSITY , Additional His tory: Height: 62 in Weight: 265 lbs MEDICATIONS: Thyroid Medications: yes Which medication: Levothyroxine How Lon+ years EXAM MEASUREMENTS: Bone mineral densitometry was performed using the [employer]. Bone mineral density as measured about the Lumbar spine is: ----- L1-L4(G/cm2): 1.111 T Score Values are as follows: ----- L1: -1.9 ----- L2: -0.9 ----- L3: 0.6 ----- L4: -0.5 ----- L1-L4: -0.6 Z Score Values are as follows: ----- L1: -1.4 ----- L2: -0.4 ----- L3: 1.1 ----- L4: 0.0 ----- L1-L4: -0.1 Bone mineral density baseline Bone mineral density about the R hip (g/cm2): 0.962 Bone mineral density about the L hip (g/cm2): 0.916 T Score values are as follows: -----R Neck: -1.2 -----L Neck: -0.8 -----R Total: -0.4 -----L Total: -0.7 Z Score values are as follows: -----R Neck: -0.3 -----L Neck: 0.1 -----R Total: 0.2 -----L Total: -0.2 Bone mineral density baseline FRAX%s: The graph provided illustrates a 7.5% chance for a major osteoporotic fx and a 0.7% chance fo r the hips probability for fx in 10 years time. IMPRESSION: Osteopenia (T Score between -2.5 and -1) femoral neck level right hip. There is slightly increased risk of fracture and the patient may be considered for treatment. Re-Screen 2-5 years. NOTE: T-SCORE=SD OF THE YOUNG ADULT MEAN. [facility] [employer], , 07/23/2024 1:33 PM
== END | disposition home or self-care (01) ==
LOC: RADBDWWP 12:20
PROVIDERS: ATTEND Family Medicine
DX: M85.89 Other specified disorders of bone density and structure, multiple sites (principal); R74.8 Abnormal levels of other serum enzymes
CPT/HCPCS: 77080

== ENCOUNTER → 2024-09-08 | Outpatient (CLI) | payer MEDICARE, BC ==
--- NOTE | 2024-09-08 17:31 | MM ---
Reason for Exam: Screening (asymptomatic). Last mammogram was performed 1 year(s) and 8 month(s) ago. Patient History: Menarche at age 13. First Full-Term at age 27. Postmenopausal. Patient has history of breast feeding. Risk Values: Gertrudis 5 year model risk: 1.9%. NCI Lifetime model risk: 5.9%. Prior Study Comparison: 05/23/2013 Bilateral Screening Mammogram, [facility]. 05/03/2017 Bilateral Screening Mammogram, [facility]. 12/15/2019 Bilateral Screening Mammogram, [facility]. 12/29/2022 Bilateral MG 3D screening mammo w/cad, [facility]. Tissue Density: The breasts are almost entirely fatty. Findings: Analyzed By CAD. Benign bilateral vascular calcifications. Some scattered benign rounded calcifications redemonstrated on the right. There is no suspicious group of microcalcifications or new suspicious mass in either breast. Overall Assessment: Benign, BI-RAD 2 Management: Screening Mammogram of both breasts in 1 year. Patient should continue monthly self-breast exams. A clinical breast exam by your physician is recommended on an annual basis. This exam should not preclude additional follow-up of suspicious palpable abnormalities. Note on Gertrudis scores and lifetime risk: 1. A Gertrudis score greater than 3% is considered moderate risk. If this is the case, consider specialist referral to assess eligibility for a risk reducing agent. 2. If overall lifetime risk for the development of breast cancer is 20% or higher, the patient may qualify for future screening with alternating mammogram and breast MRI. [facility], , 09/08/2024 5:28 PM. Electronically signed and approved by: Tyrone De Los Santos M.D. Radiologist
== END | disposition home or self-care (01) ==
LOC: RADMAMWWP 13:48
PROVIDERS: ATTEND Family Medicine
DX: Z12.31 Encounter for screening mammogram for malignant neoplasm of breast (principal); R92.313 Mammographic fatty tissue density, bilateral breasts; R92.1 Mammographic calcification found on diagnostic imaging of breast; Z78.0 Asymptomatic menopausal state
CPT/HCPCS: 77067